=== PATIENT | male | born 1970 | race American Indian/Alaskan Native ===

== ENCOUNTER 2019-01-10 03:32 | Inpatient (IN) | payer MEDICARE ==
[~2019-01-10 03:32] MED LIST: ADRENALIN ONE; AMIDATE IV ONE; HEPARIN 10,000 UNITS/10 ML ONE; QUELICIN ONE
[2019-01-10] MEDS ORDERED: NACL 0.9% 1000 ML 1,000 ML IV ONE (03:40)
[2019-01-10] MEDS ORDERED: HEPARIN 10,000 UNITS/10 ML IV ONE (03:40)
[2019-01-10] MEDS ORDERED: PLAVIX PO ONE (03:40)
--- NOTE | 2019-01-10 03:40 | Emergency Department Report ---
ED Chest Pain HPI - General Stated Complaint: CHEST PAIN Time Seen by Provider: 01/10/19 03:39 - History of Present Illness Initial Comments: Patient is a 48-year-old male presents with chest pain that occurred earlier on today. He had an episode of vomiting when this occurred. Patient was just brought in by EMS history is limited due to acuity of patient's condition. - Related Data Allergies Allergy/AdvReac Type Severity Reaction Status Date / Time No Known Allergies Allergy Verified 01/10/19 04:35 Heart Score - HEART Score History: Highly suspicious EKG: Significant ST-depression Age: 45-65 Risk factors: 1-2 risk factors Troponin: 1-3x normal limit HEART Score: 7 ED Review of Systems ROS: Stated complaint: CHEST PAIN Other details as noted in HPI Comment: Unobtainable due to pts medical conditions Cardiovascular: chest pain ED Physical Exam - General General appearance: lethargic - Head Head exam: Present: atraumatic, normocephalic - Eye Eye exam: Present: normal appearance - ENT ENT exam: Present: mucous membranes moist - Neck Neck exam: Present: normal inspection - Respiratory Respiratory exam: Present: normal lung sounds bilaterally. Absent: respiratory distress - Cardiovascular Cardiovascular Exam: Present: regular rate, normal rhythm. Absent: systolic murmur, diastolic murmur, rubs, gallop - GI/Abdominal GI/Abdominal exam: Present: soft, normal bowel sounds - Rectal Rectal exam: Present: deferred - Extremities Exam Extremities exam: Present: normal inspection - Back Exam Back exam: Present: normal inspection - Neurological Exam Neurological exam: Present: alert, oriented X3 - Psychiatric Psychiatric exam: Present: normal affect, normal mood - Skin Skin exam: Present: warm, dry, intact, normal color. Absent: rash ED Course Vital Signs 01/10/19 03:40 Temperature 97.8 F Pulse Rate 181 H Respiratory 20 Rate Blood Pressure 209/172 Blood Pressure 209/172 [Left] O2 Sat by Pulse 98 Oximetry - Intubation Time Out Performed: No Sedative: Etomidate Mg Given: 10 Paralytic: Succinylcholine Mg Given: 100 Laryngoscope: Zhanna Size: 1 ET Tube Size: 7 Tube Secured Depth (cm): 25 Tube Secured Location: lips Tube Placement Confirmation: visualized tube passing t, equal breath sounds bilat, no breath sounds over epi Patient Tolerated Procedure: no complications CHELSI score - Chelsi Score Age > 65: (0) No Aspirin use within the Past 7 Days: (0) No 3 or more CAD Risk Factors: (0) No 2 or more Angina events in past 24 hrs: (0) No Known CAD with more than 50% Stenosis: (0) No ST Deviation Greater than 0.5mm: (1) Yes ED Medical Decision Making - Lab Data Result diagrams: 01/10/19 03:46 01/10/19 03:46 Lab Results 01/10/19 01/10/19 01/10/19 Range/Units 03:46 03:46 03:46 WBC 5.0 (4.5-11.0) K/mm3 RBC 5.52 H (3.65-5.03) M/mm3 Hgb 12.8 (11.8-15.2) gm/dl Hct 40.0 (35.5-45.6) % MCV 73 L (84-94) fl MCH 23 L (28-32) pg MCHC 32 (32-34) % RDW 14.3 (13.2-15.2) % Plt Count 268 (140-440) K/mm3 Lymph % (Auto) 29.1 (13.4-35.0) % [place] % (Auto) 12.7 H (0.0-7.3) % Eos % (Auto) 1.8 (0.0-4.3) % Baso % (Auto) 0.6 (0.0-1.8) % Lymph # 1.5 (1.2-5.4) K/mm3 [place] # 0.6 (0.0-0.8) K/mm3 Eos # 0.1 (0.0-0.4) K/mm3 Baso # 0.0 (0.0-0.1) K/mm3 Seg Neutrophils % 55.8 (40.0-70.0) % Seg Neutrophils # 2.8 (1.8-7.7) K/mm3 PT 14.3 (12.2-14.9) Sec. INR 1.05 (0.87-1.13) APTT 69.0 H* (24.2-36.6) Sec. Sodium 139 (137-145) mmol/L Potassium 3.5 L (3.6-5.0) mmol/L Chloride 100.5 (98-107) mmol/L Carbon Dioxide 21 L (22-30) mmol/L Anion Gap 21 mmol/L BUN 11 (9-20) mg/dL Creatinine 0.7 L (0.8-1.5) mg/dL Estimated GFR > 60 ml/min BUN/Creatinine Ratio 16 % Glucose 191 H (75-100) mg/dL Calcium 8.8 (8.4-10.2) mg/dL Total Creatine Kinase 215 H (55-170) units/L CK-MB (CK-2) 4.2 H (0.0-4.0) ng/mL CK-MB (CK-2) Rel Index 1.9 (0-4) Troponin T < 0.010 (0.00-0.029) ng/mL Blood Type 01/10/19 Range/Units 03:46 WBC (4.5-11.0) K/mm3 RBC (3.65-5.03) M/mm3 Hgb (11.8-15.2) gm/dl Hct (35.5-45.6) % MCV (84-94) fl MCH (28-32) pg MCHC (32-34) % RDW (13.2-15.2) % Plt Count (140-440) K/mm3 Lymph % (Auto) (13.4-35.0) % [place] % (Auto) (0.0-7.3) % Eos % (Auto) (0.0-4.3) % Baso % (Auto) (0.0-1.8) % Lymph # (1.2-5.4) K/mm3 [place] # (0.0-0.8) K/mm3 Eos # (0.0-0.4) K/mm3 Baso # (0.0-0.1) K/mm3 Seg Neutrophils % (40.0-70.0) % Seg Neutrophils # (1.8-7.7) K/mm3 PT (12.2-14.9) Sec. INR (0.87-1.13) APTT (24.2-36.6) Sec. Sodium (137-145) mmol/L Potassium (3.6-5.0) mmol/L Chloride (98-107) mmol/L Carbon Dioxide (22-30) mmol/L Anion Gap mmol/L BUN (9-20) mg/dL Creatinine (0.8-1.5) mg/dL Estimated GFR ml/min BUN/Creatinine Ratio % Glucose (75-100) mg/dL Calcium (8.4-10.2) mg/dL Total Creatine Kinase (55-170) units/L CK-MB (CK-2) (0.0-4.0) ng/mL CK-MB (CK-2) Rel Index (0-4) Troponin T (0.00-0.029) ng/mL Blood Type A POSITIVE - EKG Data -: EKG Interpreted by Me - EKG Data 01/10/19 05:[address] segment elevation in leads 23 aVF depressions in V2 elevations and leads V 65 V4. Concerning for inferior and anterior RI. - Radiology Data Radiology results: report reviewed Assessment cervical and shows no acute cardiopulmonary disease - Medical Decision Making Chief medical diagnosis: STEMI Differential medical diagnosis: Unstable angina, non-STEMI I will activate quality lab assoc whole call the ingot header Dr. Garcia and I will have patient be admitted immediately to the Data Communications Technician due to his potentially life-threatening condition. Critical Care Time: Yes (30) Critical care time in (mins) excluding proc time.: 30 Critical care attestation.: If time is entered above; I have spent that time in minutes in the direct care of this critically ill patient, excluding procedure time. ED Disposition Clinical Impression: STEMI (ST elevation myocardial infarction) Qualifiers: Involved coronary artery: unspecified coronary artery Qualified Code(s): I21.3 - ST elevation (STEMI) myocardial infarction of unspecified site Disposition: 09 OP ADMIT IP TO THIS HOSP Is pt being admited?: Yes Does the pt Need Aspirin: No Condition: Stable
--- NOTE | 2019-01-10 04:03 | XRay Report ---
PROCEDURE: XR CHEST 1V AP TECHNIQUE: Chest radiograph single view. HISTORY: CODE STEMI COMPARISONS: None . FINDINGS: No mediastinal shift. Cardiac silhouette is not enlarged. No pneumothorax, effusion, or focal pulmona ry opacity identified. No acute skeletal findings. IMPRESSION: No acute pulmonary finding identified. This document is electronically signed by Ramon Cha MD., January 10 2019 03:57:17 AM ET
[2019-01-10 04:05] LABS: Basophils % (Auto) 0.6 % (0.0-1.8); Eosinophils # (Auto) 0.1 K/mm3 (0.0-0.4); Eosinophils % (Auto) 1.8 % (0.0-4.3); Hemoglobin 12.8 gm/dl (11.8-15.2); Lymphocytes # (Auto) 1.5 K/mm3 (1.2-5.4); Lymphocytes % (Auto) 29.1 % (13.4-35.0); Mean Corpuscular HGB Conc 32 % (32-34); Mean Corpuscular Volume 73 fl (84-94); Monocytes # (Auto) 0.6 K/mm3 (0.0-0.8); Monocytes % (Auto) 12.7 % (0.0-7.3); Platelet Count 268 K/mm3 (140-440); Red Blood Count 5.52 M/mm3 (3.65-5.03); Red Cell Distribution Width 14.3 % (13.2-15.2)
[2019-01-10] MEDS ORDERED: HEPARIN/NS 5000 UNIT/500ML(CATH LAB) 1,000 ML IR ONE (04:11)
[2019-01-10] MEDS ORDERED: VERSED ONE ×2 (04:11→04:54)
[2019-01-10] MEDS ORDERED: SUBLIMAZE ONE (04:11)
[2019-01-10] MEDS ORDERED: XYLOCAINE 2% INFILTRATI ONE (04:12)
[2019-01-10] MEDS ORDERED: CALAN ONE (04:12)
[2019-01-10] MEDS ORDERED: NITROGLYCERIN SYRINGE 3 ML ONE (04:12)
[2019-01-10 04:17] LABS: INR 1.05 (0.87-1.13)
[2019-01-10] MEDS ORDERED: NACL 0.9% 1000 ML 1,000 ML ONE ×2 (04:18→06:04)
[2019-01-10] MEDS ORDERED: XYLOCAINE CARDIAC IV ONE (04:23)
[2019-01-10] MEDS ORDERED: ADRENALIN ONE ×2 (04:23→05:07)
[2019-01-10] MEDS ORDERED: NEO SYNEPHRINE/NS Syringe(OR USE) IV ONE (04:24)
[2019-01-10] MEDS ORDERED: ATROPINE 0.1% (CARDIAC) ONE (04:24)
[2019-01-10] MEDS: HEPARIN 10,000 UNITS/10 ML ONE ×2 (04:30→04:37)
[2019-01-10] MEDS ORDERED: INTROPIN DRIP 800 MG/D5W 250 ML 800 MG/250 ML BAG IV ONE (04:31)
[2019-01-10 04:34] LABS: BUN/Creatinine Ratio 16; Blood Urea Nitrogen 11 mg/dL (9-20); Calcium 8.8 mg/dL (8.4-10.2); Creatine Kinase MB 4.2 ng/mL (0.0-4.0); Hemolysis Index 5
[2019-01-10] MEDS ORDERED: AGGRASTAT DRIP (12.5 MG/250 ML) 12,500 MCG/250 ML BAG IV ONE (04:37)
[2019-01-10] MEDS ORDERED: HEPARIN/NS 5000 UNIT/500ML(CATH LAB) 500 ML IR ONE (04:57)
[2019-01-10] MEDS ORDERED: ANCEF/STERILE WATER 2 GM/20 ML 2 GM/20 ML SYRINGE IV ONE (05:03)
[2019-01-10] MEDS ORDERED: NEO SYNEPHRINE ONE (05:07)
[2019-01-10] MEDS ORDERED: LEVOPHED IV ONE (05:07)
[2019-01-10] MEDS ORDERED: NACL 0.9% 250ML 250 ML ONE (05:07)
[2019-01-10] MEDS ORDERED: NACL 0.9% 100 ML ONE (05:07)
[2019-01-10] MEDS ORDERED: HEPARIN/ 0.45% NACL-25,000 UNIT/500 ML 25,000 UNIT/500 ML BAG ONE (05:10)
[2019-01-10] MEDS ORDERED: ALUM-MAG HYDROX-SIMETH 200-200-20MG/5ML ONE (05:10)
[2019-01-10] MEDS ORDERED: BRILINTA ONE (05:10)
[2019-01-10] MEDS ORDERED: BREVIBLOC IV ONE (05:12)
[2019-01-10] MEDS ORDERED: AMIDATE IV ONE (05:12)
[2019-01-10] MEDS ORDERED: ZEMURON IV ONE (05:12)
[2019-01-10] MEDS ORDERED: VERSED IV ONE (05:13)
--- NOTE | 2019-01-10 05:46 | History and Physical Report ---
History of Present Illness Date of examination: 01/10/19 Date of admission: 01/10/19 Chief complaint: Chest pain History of present illness: Patient is a 48-year-old with history of diabetes no significant family history who presented to the ER via EMS after he woke up at severe substernal chest pain. Apparently patient started having chest pain started throwing up and immediately called 911. Patient was brought into the ER noted to have acute inferior ST elevation HI. In the interim patient had a code and and had to be resuscitated and intubated. Patient was taken emergently to the agriculture laborer noted 100% occlusion of the circumflex. Patient is status post successful percutaneous intervention of the proximal circumflex. Currently intubated and on balloon pump. Still has residual ST elevation inferior leads despite CHELSI-3 flow.. Past History Past Medical History: diabetes Medications and Allergies Allergies Allergy/AdvReac Type Severity Reaction Status Date / Time No Known Allergies Allergy Verified 01/10/19 04:35 Active Meds: Active Medications Aspirin (Baby Aspirin) 81 mg PO QDAY ANANT Sodium Chloride (Nacl 0.9% 1000 Ml) 1,000 mls @ 42 mls/hr IV ONCE ONE Stop: 01/11/19 03:28 Tirofiban/Sodium Chloride (Aggrastat Drip (12.5 Mg/250 Ml)) 12,500 mcg in 250 mls @ 0 mls/hr IV DIRECT ANANT; Protocol Sodium Chloride (Nacl 0.9% 1000 Ml) 1,000 mls @ 150 mls/hr IV DIRECT ANANT Ticagrelor (Brilinta) 90 mg PO BID ANANT Review of Systems ROS unobtainable: due to endotracheal tube Physical Examination Vital Signs Temp Pulse Resp BP Pulse Ox 97.8 F 181 H 20 209/172 98 01/10/19 03:40 01/10/19 03:40 01/10/19 03:40 01/10/19 03:40 01/10/19 03:40 General appearance: well-nourished Neck: Positive: neck supple Cardiac: Positive: Tachycardia Lungs: Positive: Normal Exam Neuro: Positive: Other (patient intubated) Abdomen: Positive: Unremarkable Male genitourinary: Positive: deferred Skin: Positive: Clear Extremities: Present: normal Results 01/10/19 03:46 01/10/19 03:46 Cardiac Enzymes 01/10/19 Range/Units 03:46 CK-MB (CK-2) 4.2 H (0.0-4.0) ng/mL Coagulation 01/10/19 Range/Units 03:46 PT 14.3 (12.2-14.9) Sec. INR 1.05 (0.87-1.13) APTT 69.0 H* (24.2-36.6) Sec. CBC 01/10/19 Range/Units 03:46 WBC 5.0 (4.5-11.0) K/mm3 RBC 5.52 H (3.65-5.03) M/mm3 Hgb 12.8 (11.8-15.2) gm/dl Hct 40.0 (35.5-45.6) % Plt Count 268 (140-440) K/mm3 Lymph # 1.5 (1.2-5.4) K/mm3 [place] # 0.6 (0.0-0.8) K/mm3 Eos # 0.1 (0.0-0.4) K/mm3 Baso # 0.0 (0.0-0.1) K/mm3 Comprehensive Metabolic Panel 01/10/19 Range/Units 03:46 Sodium 139 (137-145) mmol/L Potassium 3.5 L (3.6-5.0) mmol/L Chloride 100.5 (98-107) mmol/L Carbon Dioxide 21 L (22-30) mmol/L BUN 11 (9-20) mg/dL Creatinine 0.7 L (0.8-1.5) mg/dL Glucose 191 H (75-100) mg/dL Calcium 8.8 (8.4-10.2) mg/dL EKG interpretations - Telemetry EKG Rhythm: Sinus Rhythm (acute inferior ST elevation HI) Assessment and Plan Assessment Acute inferior ST elevation HI Status post cardiac arrest in the ER Cardiogenic shock Status post PCI of the circumflex Diabetes mellitus Plan Balloon pump support Aspirin Heparin Brilinta Aggrastat for at least 24 hours No beta blockers for now Atorvastatin PPIs Diabetic management per medical team Condition critical
--- NOTE | 2019-01-10 05:51 | Event Note ---
Date: 01/10/19 Called to laboratory mechanical technician urgently for STEMI patient who had been intubated in ED for C but was fighting the ventilator despite RN administered versed and fentanyl IV for sedation. On arrival, procedure was completed but patient still displaying vent dyssynchrony. BP 100s/50s, tachycardic, SpO2 100% on vent settings VCV Vt 500mL x 18bpm, FiO2 100%, Peep 6, does not open eyes to noxious stimuli. Administered rocuronium 50mg IV and observed patient for several minutes thereafter. VS remained stable. bean sprout laborer RN advised that paralytic had been given, vent settings were unchanged, and that he should be remain intubated and appropriately sedated on arrival to ICU until he displays full recovery of muscle strength. Beverley Silver MD Anesthesiology
[2019-01-10] MEDS ORDERED: AGGRASTAT DRIP (12.5 MG/250 ML) 12,500 MCG/250 ML BAG IV SCH (06:00)
[2019-01-10] MEDS ORDERED: APRESOLINE IV PRN (06:46)
[2019-01-10] MEDS ORDERED: D50W (25GM) Syringe IV PRN ×2 (06:48→08:30)
--- NOTE | 2019-01-10 08:12 | Cardiac Catherization Report ---
CORONARY ANGIOGRAM AND PERCUTANEOUS INTERVENTION REPORT PROCEDURES PERFORMED: 1. Selective left and right coronary angiogram. 2. Left ventriculogram. 3. Percutaneous intervention of totally occluded circumflex. 4. Intraaortic balloon pump placement. ASSEMBLER FITTER: Franklin Garcia MD INDICATION: Acute inferior ST elevation PR and cardiogenic shock. PROCEDURE DETAILS: The patient was brought into the laborer cheesemaking on a ventilator. The patient was cleaned and draped in the usual sterile fashion. Using a micropuncture needle and after infiltration of local anesthesia, a 6-Wallisian sheath was placed in the right femoral artery. Sheath was cleaned and flushed up. A diagnostic coronary angiogram revealed 100% occlusion of the circ. We decided to proceed with the intervention. Intravenous heparin was used to maintain therapeutic ACT. An XB 3.5 guide was used to engage the left main coronary artery. A BMW wire was used to cross the 100% occlusion of the circumflex. After initial predilatation, we were able to establish CHELSI 2 flow. Mechanical thrombectomy was done and aspirated as much as thrombus as possible, following which a 3.0 x 15 Xience drug-eluting stent was deployed in the proximal circumflex. This was then postdilated with a 3.5 mm balloon to high atmospheres. There was good CHELSI 3 flow in a large bifurcating OM, but the mid and distal circumflex were small and had CHELSI 2 flow. We then exchanged the XB 3.5 guide catheter to a JR4 diagnostic catheter. Right coronary angiogram was done. Over the wire, exchange was done and the pigtail catheter was used to cross the LV and left ventriculogram was done. Then, the pigtail catheter was removed and a balloon pump was placed under the standard guidelines. Under fluoroscopic guidance, the placement of balloon pump was confirmed. Balloon pump was sutured in place and specific connections made. NG tube was placed. In the interim, the patient was also started on Aggrastat prior to PCI. An NG tube was placed and 180 mg of Brilinta was given. The patient is currently hemodynamically stable on 10 mcg of dopamine and balloon pump. FINDINGS: HEMODYNAMICS: 1. No significant gradient across the aortic valve. 2. LVEDP was 18. 3. Left ventriculogram done in 30 degrees MATTHEWS projection was suboptimal because of tachycardia. ANGIOGRAM DETAILS: 1. Left main is angiographically normal. 2. LAD has mild luminal irregularities. 3. Circumflex 100% occluded proximally. 4. RCA is a codominant small caliber vessel, 40% proximal stenosis noted. IMPRESSION: 1. Status post successful percutaneous intervention of the 100% occlusion of the proximal circumflex with the deployment of a 3.0 x 15 Xience drug-eluting stent, which was then post-dilated with a 3.5 mm balloon to high atmospheres. 2. Mild nonobstructive disease of the right coronary artery. 3. Cardiogenic shock. 4. Successful placement of an intraaortic balloon pump. 5. Incomplete resolution of inferior ST segment probably secondary to microvascular thrombi. PLAN: 1. Aspirin for life. 2. Brilinta via NG tube for now. 3. Aggrastat at least for 24 hours. 4. Intravenous heparin while the patient is on balloon pump. 5. Aggressive adjuvant pharmacotherapy post-PCI. 6. Routine balloon pump management. JOB# [id number] MIGUEL ANGEL/RODRIGUE
[2019-01-10] MEDS ORDERED: HEPARIN 1,000 UNIT in NACL 0.9% 500 ML 500 ML IV SCH ×2 (09:15→11:30)
[2019-01-10 09:17] LABS: Hematocrit 42.1 % (35.5-45.6); Hemoglobin 13.2 gm/dl (11.8-15.2)
[2019-01-10 09:29] LABS: INR 1.18 (0.87-1.13)
--- NOTE | 2019-01-10 09:41 | Consultation ---
History of Present Illness Consult date: 01/10/19 Requesting physician: ELAINE THEODORE Reason for consult: other (Cardiac arrest secondary to STEMI, and acute respiratory failure) History of present illness: 48 y/o male with acute respiratory failure secondary to cardiac arrest from STEMI. Patient taken to the airport maintenance laborer and transitioned to the ICU on a balloon pump. Patient awake and alert. Follows commands. Currently on 1:1 balloon pump with aggrastat and heparin infusions. BP stable. No distress noted. Past History Past Medical History: diabetes Past Surgical History: Other (unable to obtain) Social history: other (unable to obtain) Family history: other (unable to obtain) Medications and Allergies Allergies Allergy/AdvReac Type Severity Reaction Status Date / Time No Known Allergies Allergy Verified 01/10/19 04:35 Active Meds: Active Medications Aspirin (Baby Aspirin) 81 mg PO QDAY ANANT Atorvastatin Calcium (Lipitor) 80 mg PO QHS ANANT Dextrose (D50w (25gm) Syringe) 50 ml IV PRN PRN PRN Reason: Hypoglycemia Dextrose (D50w (25gm) Syringe) 50 ml IV PRN PRN PRN Reason: Hypoglycemia Fentanyl (Sublimaze) 50 mcg IV Q2HR PRN PRN Reason: Chest Pain Hydralazine HCl (Apresoline) 5 mg IV Q6H PRN PRN Reason: Hypertension Sodium Chloride (Nacl 0.9% 1000 Ml) 1,000 mls @ 42 mls/hr IV ONCE ONE Stop: 01/11/19 03:28 Tirofiban/Sodium Chloride (Aggrastat Drip (12.5 Mg/250 Ml)) 12,500 mcg in 250 mls @ 19.5 mls/hr IV DIRECT ANANT; Protocol Stop: 01/18/19 05:59 Sodium Chloride (Nacl 0.9% 1000 Ml) 1,000 mls @ 150 mls/hr IV DIRECT ANANT Dopamine HCl/Dextrose (Intropin Drip 800 Mg/D5w 250 Ml) 800 mg in 250 mls @ 4.082 mls/hr IV TITR ANANT; Protocol Heparin Sodium/Sodium Chloride (Heparin/ 0.45% Nacl-25,000 Unit/500 Ml) 25,000 unit in 500 mls @ 32.659 mls/hr IV TITR ANANT; Protocol Insulin Human Lispro (Humalog) 0 unit SUB-Q Q6HR ANANT; Protocol Lansoprazole (Prevacid Solutab) 30 mg FEEDTUBE QDAY ANANT Ticagrelor (Brilinta) 90 mg PO BID [facility] Review of Systems ROS unobtainable: due to endotracheal tube Physical Examination Vital signs: Vital Signs Temp Pulse Resp BP Pulse Ox 97.8 F 181 H 20 209/172 98 01/10/19 03:40 01/10/19 03:40 01/10/19 03:40 01/10/19 03:40 01/10/19 03:40 General appearance: no acute distress, alert Eyes: non-icteric ENT: other (orally intubated and critically ill on the vent) Effort: normal Ascultation: Bilateral: clear Percussion: Bilateral: not dull Gastrointestinal: soft normal mental status Results - Laboratory Findings CBC and BMP: 01/10/19 07:50 01/10/19 03:46 ABG POC ABG pH 7.265 (7.35-7.45) L 01/10/19 08:19 POC ABG pCO2 44.5 (35-45) 01/10/19 08:19 POC ABG pO2 287 (80-105) H 01/10/19 08:19 POC ABG HCO3 20.2 01/10/19 08:19 POC ABG Total CO2 22 01/10/19 08:19 POC ABG O2 Sat 100 01/10/19 08:19 PT/INR, D-dimer PT 15.8 Sec. (12.2-14.9) H 01/10/19 07:50 INR 1.18 (0.87-1.13) H 01/10/19 07:50 Abnormal lab findings: Abnormal Labs 01/10/19 01/10/19 01/10/19 03:46 03:46 03:46 RBC 5.52 H MCV 73 L MCH 23 L [place] % (Auto) 12.7 H PT INR APTT 69.0 H* POC ABG pH POC ABG pO2 Potassium 3.5 L Carbon Dioxide 21 L Creatinine 0.7 L Glucose 191 H Total Creatine Kinase 215 H CK-MB (CK-2) 4.2 H 01/10/19 01/10/19 07:50 08:19 RBC MCV MCH [place] % (Auto) PT 15.8 H INR 1.18 H APTT POC ABG pH 7.265 L POC ABG pO2 287 H Potassium Carbon Dioxide Creatinine Glucose Total Creatine Kinase CK-MB (CK-2) - Diagnostic Findings Chest x-ray: image reviewed (Clear lung lambert, cardiomegaly) Assessment and Plan 48 y/o male with cardiac arrest secondary to STEMI and acute respiratory failure status post PCI 1. Continue vent support, wean FiO2 as tolerated 2. PRN fentanyl for Pain, currently no continuous sedation needed 3. Balloon pump and anticoagulation per cards CCT 31 minutes.
[2019-01-10] MEDS: INTROPIN DRIP 800 MG/D5W 250 ML 800 MG/250 ML BAG IV SCH ×2 (10:00→15:56)
[2019-01-10] MEDS ORDERED: SUBLIMAZE IV PRN ×2 (10:00→10:18)
[2019-01-10 10:21] LABS: Chol/HDL Ratio 2.55 %
[2019-01-10 10:24] LABS: Partial Thromboplastin Time 129.2 Sec. (24.2-36.6)
[2019-01-10] MEDS: NACL 0.9% 1000 ML 1,000 ML IV SCH ×2 (10:45→16:01)
[2019-01-10] MEDS: fentaNYL DRIP Premix 2,000 MCG/100 ML BAG IV SCH (11:00)
[2019-01-10 11:09] LABS: Creatine Kinase MB 398.1 ng/mL (0.0-4.0)
[2019-01-10] MEDS: HEPARIN/ 0.45% NACL-25,000 UNIT/500 ML 25,000 UNIT/500 ML BAG IV SCH (11:30)
[2019-01-10] MEDS ORDERED: HEPARIN 1,000 UNIT in NACL 0.9% 500 ML 500 ML IV ONE (11:30)
[2019-01-10] MEDS: HumaLOG SUB-Q SCH ×2 (12:00→18:14)
[2019-01-10 12:54] LABS: Creatine Kinase MB 339.3 ng/mL (0.0-4.0)
--- NOTE | 2019-01-10 13:08 | Progress Note ---
Assessment and Plan Acute inferior ST elevation SD s/p PCI of circumflex Status post cardiac arrest in the ER Cardiogenic shock s/p IABG Diabetes mellitus Bloody drainage from NG tube. Plan Aggrastat stopped due to onging bloody drainage from NG tube Continue IABP Continue DAPT and IV heparin Wean dopamine Check serial H and H Subjective Date of service: 01/10/19 Interval history: Pt remains intubated, mechanically ventilated. He has been having bloody output from NG tube. Objective Vital Signs Temp Pulse Resp BP BP Pulse Ox 01/10/19 12:51 97 H 18 87/55 100 01/10/19 12:41 97 H 18 87/63 100 01/10/19 12:31 97 H 10 L 87/63 100 01/10/19 12:21 96 H 18 116/67 100 01/10/19 12:11 99 H 12 95/59 87 01/10/19 12:00 100 H 0 L 95/59 100 01/10/19 11:51 99 H 0 L 90/58 96 01/10/19 11:40 98 H 18 94/55 95 01/10/19 11:30 93 H 18 78/49 100 01/10/19 11:21 97 H 18 82/52 100 01/10/19 11:11 97 H 18 94/53 100 01/10/19 11:00 97 H 18 94/53 100 01/10/19 10:51 97 H 18 90/61 100 01/10/19 10:41 95 H 15 86/51 100 01/10/19 10:30 95 H 17 86/51 100 01/10/19 10:21 100 H 12 90/57 98 01/10/19 10:11 104 H 7 L 90/61 98 01/10/19 10:01 96 H 12 90/61 97 01/10/19 09:51 97 H 18 100/59 98 01/10/19 09:41 99 H 14 108/54 99 01/10/19 09:31 101 H 18 108/54 99 01/10/19 09:21 102 H 16 101/59 99 01/10/19 09:11 102 H 15 104/60 99 01/10/19 09:00 107 H 19 104/60 98 01/10/19 08:51 102 H 19 110/48 100 01/10/19 08:41 100 H 16 72/51 99 01/10/19 08:31 103 H 12 72/51 98 01/10/19 08:27 103 H 99 01/10/19 08:21 101 H 19 116/59 100 01/10/19 08:11 112 H 19 107/67 100 01/10/19 08:00 97 F L 119 H 14 107/67 100 01/10/19 07:51 117 H 17 109/64 100 01/10/19 07:41 103 H 14 88/49 100 01/10/19 07:30 101 H 17 88/49 100 01/10/19 07:25 113 H 15 100 01/10/19 07:12 109 H 20 100 01/10/19 07:00 97 F L 01/10/19 04:11 133 H 40 H 209/172 57 L 01/10/19 04:10 126 H 100 01/10/19 04:01 96 H 100 01/10/19 03:51 78 12 100 01/10/19 03:40 97.8 F 78 12 110/73 209/172 100 01/10/19 03:32 84 17 99 - Physical Examination Neck: Positive: neck supple Cardiac: Positive: Reg Rate and Rhythm Lungs: Positive: Rhonchi Neuro: Positive: Other (patient intubated) Abdomen: Positive: Unremarkable Skin: Positive: Clear Extremities: Present: normal - Labs and Meds Cardiac Enzymes 01/10/19 01/10/19 01/10/19 Range/Units 03:46 07:50 10:46 CK-MB (CK-2) 4.2 H 398.1 H 339.3 H (0.0-4.0) ng/mL Coagulation 01/10/19 01/10/19 Range/Units 03:46 07:50 PT 14.3 15.8 H (12.2-14.9) Sec. INR 1.05 1.18 H (0.87-1.13) APTT 69.0 H* 129.2 H* (24.2-36.6) Sec. Lipids 01/10/19 Range/Units 07:50 Triglycerides 89 (2-149) mg/dL Cholesterol 115 (50-199) mg/dL HDL Cholesterol 45 (40-59) mg/dL Cholesterol/HDL Ratio 2.55 % CBC 01/10/19 01/10/19 Range/Units 03:46 07:50 WBC 5.0 (4.5-11.0) K/mm3 RBC 5.52 H (3.65-5.03) M/mm3 Hgb 12.8 13.2 (11.8-15.2) gm/dl Hct 40.0 42.1 (35.5-45.6) % Plt Count 268 282 (140-440) K/mm3 Lymph # 1.5 (1.2-5.4) K/mm3 [place] # 0.6 (0.0-0.8) K/mm3 Eos # 0.1 (0.0-0.4) K/mm3 Baso # 0.0 (0.0-0.1) K/mm3 Comprehensive Metabolic Panel 01/10/19 Range/Units 03:46 Sodium 139 (137-145) mmol/L Potassium 3.5 L (3.6-5.0) mmol/L Chloride 100.5 (98-107) mmol/L Carbon Dioxide 21 L (22-30) mmol/L BUN 11 (9-20) mg/dL Creatinine 0.7 L (0.8-1.5) mg/dL Glucose 191 H (75-100) mg/dL Calcium 8.8 (8.4-10.2) mg/dL
--- NOTE | 2019-01-10 15:01 | Progress Note ---
Assessment and Plan Assessment and plan: The high probability of a clinically significant, sudden or life threatening deterioration of the [] system(s) required my full and direct attention, intervention and personal management. The aggregate critical care time was [] minutes. This time is in addition to time spent performing reported procedures but includes the following: [x] Data Review and interpretation [x]x Patient assessment and monitoring of vital signs [x] Documentation x[] Medication orders and management Total Time Spent with Patient (Minutes): 33 - Patient Problems (1) STEMI (ST elevation myocardial infarction) Current Visit: Yes Status: Acute Qualifiers: Involved coronary artery: unspecified coronary artery Qualified Code(s): I21.3 - ST elevation (STEMI) myocardial infarction of unspecified site Plan to address problem: Patient presents with acute myocardial infarction status post PCI had 100% stenosis of circumflex. Hospital course complicated by cardiac arrest respiratory failure after cold blue. Patient now intubated. Hospital course also complicated by blood loss anemia H&H pending. Has improved since disco ntinuing Aggrastat. We'll continue aspirin. Wean dopamine. cardiology following as well. (2) Acute respiratory failure Current Visit: Yes Status: Acute Plan to address problem: Patient remains intubated onset no drift. Wean per pulmonary Dr. Cage. (3) Diabetes Current Visit: Yes Status: Acute Plan to address problem: Patient has diabetes appears to have been treated such as type II. May have been unknown. Will cover with sliding scale insulin today and advance as tolerated. Accu-Cheks every 6 hourly. Cover with moderate dose sliding scale. History Interval history: Patient intubated sedated intubated with bloody discharge from the nares and oral mucosa. This is much improved since earlier. Patient was on Aggrastat and aspirin. She is acute [place] with ST elevation status post PCI. Hospital course complicated by acute respiratory failure and subsequently intubated. Hospitalist Physical - Constitutional Vitals: Temp Pulse Resp BP Pulse Ox 98.4 F 99 H 18 87/57 100 01/10/19 12:00 01/10/19 13:41 01/10/19 13:41 01/10/19 13:41 01/10/19 13:41 General appearance: Present: mild distress, well-nourished - EENT ENT: dentition normal, no oropharyngeal erythema, no poor dentition, no thrush, no ulcerations - Neck Neck: Present: supple - Respiratory Respiratory: bilateral: diminished, rhonchi - Cardiovascular Rhythm: regular - Extremities Extremities: no ischemia, pulses intact, pulses symmetrical, No edema, normal temperature, normal color Peripheral Pulses: within normal limits - Abdominal General gastrointestinal: soft, non-tender, non-distended, no distended, no normal bowel sounds, no hypoactive bowel sounds - Integumentary Integumentary: Present: warm, dry - Psychiatric Psychiatric: other (intubated sedated.) Results - Labs CBC & Chem 7: 01/10/19 07:50 01/10/19 03:46 Labs: Laboratory Last Values WBC 5.0 K/mm3 (4.5-11.0) 01/10/19 03:46 RBC 5.52 M/mm3 (3.65-5.03) H 01/10/19 03:46 Hgb 13.2 gm/dl (11.8-15.2) 01/10/19 07:50 Hct 42.1 % (35.5-45.6) 01/10/19 07:50 MCV 73 fl (84-94) L 01/10/19 03:46 MCH 23 pg (28-32) L 01/10/19 03:46 MCHC 32 % (32-34) 01/10/19 03:46 RDW 14.3 % (13.2-15.2) 01/10/19 03:46 Plt Count 282 K/mm3 (140-440) 01/10/19 07:50 Lymph % (Auto) 29.1 % (13.4-35.0) 01/10/19 03:46 [place] % (Auto) 12.7 % (0.0-7.3) H 01/10/19 03:46 Eos % (Auto) 1.8 % (0.0-4.3) 01/10/19 03:46 Baso % (Auto) 0.6 % (0.0-1.8) 01/10/19 03:46 Lymph # 1.5 K/mm3 (1.2-5.4) 01/10/19 03:46 [place] # 0.6 K/mm3 (0.0-0.8) 01/10/19 03:46 Eos # 0.1 K/mm3 (0.0-0.4) 01/10/19 03:46 Baso # 0.0 K/mm3 (0.0-0.1) 01/10/19 03:46 Seg Neutrophils % 55.8 % (40.0-70.0) 01/10/19 03:46 Seg Neutrophils # 2.8 K/mm3 (1.8-7.7) 01/10/19 03:46 PT 15.8 Sec. (12.2-14.9) H 01/10/19 07:50 INR 1.18 (0.87-1.13) H 01/10/19 07:50 APTT 129.2 Sec. (24.2-36.6) H* 01/10/19 07:50 Heparin Anti-Xa Level 0.56 U.I./ml (0.3-0.7) 01/10/19 10:46 POC ABG pH 7.265 (7.35-7.45) L 01/10/19 08:19 POC ABG pCO2 44.5 (35-45) 01/10/19 08:19 POC ABG pO2 287 (80-105) H 01/10/19 08:19 POC ABG HCO3 20.2 01/10/19 08:19 POC ABG Total CO2 22 01/10/19 08:19 POC ABG O2 Sat 100 01/10/19 08:19 POC ABG Base Excess -7 01/10/19 08:19 FiO2 100 % 01/10/19 08:19 Sodium 139 mmol/L (137-145) 01/10/19 03:46 Potassium 3.5 mmol/L (3.6-5.0) L 01/10/19 03:46 Chloride 100.5 mmol/L (98-107) 01/10/19 03:46 Carbon Dioxide 21 mmol/L (22-30) L 01/10/19 03:46 Anion Gap 21 mmol/L 01/10/19 03:46 BUN 11 mg/dL (9-20) 01/10/19 03:46 Creatinine 0.7 mg/dL (0.8-1.5) L 01/10/19 03:46 Estimated GFR > 60 ml/min 01/10/19 03:46 BUN/Creatinine Ratio 16 % 01/10/19 03:46 Glucose 191 mg/dL (75-100) H 01/10/19 03:46 POC Glucose 189 (70-105) H 01/10/19 04:15 Calcium 8.8 mg/dL (8.4-10.2) 01/10/19 03:46 Total Creatine Kinase 7146 units/L (55-170) H 01/10/19 10:46 CK-MB (CK-2) 339.3 ng/mL (0.0-4.0) H 01/10/19 10:46 CK-MB (CK-2) Rel Index 4.7 (0-4) H 01/10/19 10:46 Troponin T 10.800 ng/mL (0.00-0.029) H* 01/10/19 10:46 Triglycerides 89 mg/dL (2-149) 01/10/19 07:50 Cholesterol 115 mg/dL (50-199) 01/10/19 07:50 LDL Cholesterol Direct 70 mg/dL (50-130) 01/10/19 07:50 HDL Cholesterol 45 mg/dL (40-59) 01/10/19 07:50 Cholesterol/HDL Ratio 2.55 % 01/10/19 07:50 Blood Type A POSITIVE 01/10/19 03:46 Antibody Screen Negative 01/10/19 03:46
[2019-01-10 16:09] LABS: Hematocrit 36.7 % (35.5-45.6); Hemoglobin 11.4 gm/dl (11.8-15.2)
[2019-01-10] MEDS: BABY ASPIRIN PO SCH (17:12)
[2019-01-10] MEDS: PREVACID SOLUTAB FEEDTUBE SCH (17:12)
[2019-01-10] MEDS: BRILINTA PO SCH (21:43)
[2019-01-10 22:19] LABS: Hematocrit 35.7 % (35.5-45.6); Hemoglobin 11.3 gm/dl (11.8-15.2); Mean Corpuscular HGB Conc 32 % (32-34); Mean Corpuscular Volume 72 fl (84-94); Platelet Count 231 K/mm3 (140-440); Red Blood Count 4.93 M/mm3 (3.65-5.03)
[2019-01-11] MEDS: NACL 0.9% 1000 ML 1,000 ML IV SCH ×4 (00:09→19:00)
[2019-01-11] MEDS: HumaLOG SUB-Q SCH ×4 (00:13→17:56)
[2019-01-11] MEDS: fentaNYL DRIP Premix 2,000 MCG/100 ML BAG IV SCH (01:36)
--- NOTE | 2019-01-11 02:57 | XRay Report ---
PROCEDURE: XR CHEST 1V AP TECHNIQUE: Chest radiograph single view. HISTORY: post pci COMPARISONS: 01/10/2019 . FINDINGS: Heart: Normal. Mediastinum/Vessels: Normal. Lungs/Pleural space: Normal. Bony thorax: No acute osseous abnormality. Life support devices: The ET tube and NG tube appear in good position.. IMPRESSION: No acute infarct or congestion. Satisfactory positioning of ET tube and NG tube.. This document is electronically signed by Jordan Lopez MD., January 11 2019 02:55:08 AM ET
[2019-01-11 04:54] LABS: Basophils % (Auto) 0.2 % (0.0-1.8); Hematocrit 32.5 % (35.5-45.6); Hemoglobin 10.2 gm/dl (11.8-15.2); Lymphocytes # (Auto) 0.7 K/mm3 (1.2-5.4); Lymphocytes % (Auto) 8.3 % (13.4-35.0); Mean Corpuscular HGB Conc 31 % (32-34); Mean Corpuscular Volume 73 fl (84-94); Monocytes # (Auto) 0.9 K/mm3 (0.0-0.8); Monocytes % (Auto) 11.4 % (0.0-7.3); Platelet Count 207 K/mm3 (140-440); Red Blood Count 4.45 M/mm3 (3.65-5.03); Red Cell Distribution Width 14.2 % (13.2-15.2)
[2019-01-11 05:11] LABS: Creatine Kinase MB 136.2 ng/mL (0.0-4.0)
[2019-01-11 05:12] LABS: BUN/Creatinine Ratio 26; Blood Urea Nitrogen 21 mg/dL (9-20); Calcium 7.2 mg/dL (8.4-10.2); Hemolysis Index 50
[2019-01-11] MEDS: HEPARIN/ 0.45% NACL-25,000 UNIT/500 ML 25,000 UNIT/500 ML BAG IV SCH (06:21)
[2019-01-11] MEDS: BRILINTA PO SCH ×2 (09:12→22:11)
[2019-01-11] MEDS: BABY ASPIRIN PO SCH (09:12)
[2019-01-11] MEDS: PREVACID SOLUTAB FEEDTUBE SCH (09:12)
--- NOTE | 2019-01-11 11:21 | Progress Note ---
Assessment and Plan Acute inferior ST elevation [place] s/p PCI of circumflex Status post cardiac arrest in the ER Cardiogenic shock s/p IABG Diabetes mellitus Bloody drainage from NG tube: Now resolved. Plan Continue IABP - will plan on removing IABP tomorrow. Continue DAPT and IV heparin Check serial H and H Subjective Date of service: 01/11/19 Interval history: Pt is doing much better today. He has not had any further bleeding. Dopamine weaned. Objective Vital Signs Temp Pulse Resp BP Pulse Ox 01/11/19 08:10 100 01/11/19 08:00 98.5 F 95 H 116/80 100 01/11/19 07:00 18 100 01/11/19 06:00 18 100 01/11/19 05:00 18 100 01/11/19 04:27 102 H 100 01/11/19 04:00 18 100 01/11/19 03:00 18 100 01/11/19 02:00 101 H 18 100 01/11/19 01:00 101 H 18 100 01/11/19 00:00 99.0 F 101 H 18 96/72 100 01/10/19 23:00 18 100 01/10/19 22:00 101 H 18 100 01/10/19 21:53 98 H 100 01/10/19 21:00 18 100 01/10/19 20:00 99.2 F 18 100 01/10/19 18:41 101 H 18 90/54 100 01/10/19 18:30 102 H 18 90/54 100 01/10/19 18:21 102 H 17 92/60 100 01/10/19 18:11 100 H 18 108/78 100 01/10/19 18:10 100 01/10/19 18:00 99 H 18 108/78 100 01/10/19 17:51 101 H 17 108/56 99 01/10/19 17:41 102 H 18 98/63 99 01/10/19 17:30 103 H 18 98/63 99 01/10/19 17:21 103 H 18 99/56 98 01/10/19 17:11 102 H 18 123/69 100 01/10/19 17:01 113 H 18 123/69 100 01/10/19 16:51 115 H 19 108/66 100 01/10/19 16:41 111 H 18 99/61 100 01/10/19 16:34 104 H 99/61 100 01/10/19 16:31 106 H 14 99/61 100 01/10/19 16:21 101 H 18 81/43 100 01/10/19 16:11 100 H 18 105/72 100 01/10/19 16:00 99 F 120 H 18 105/72 100 01/10/19 15:51 115 H 18 107/64 100 01/10/19 15:41 116 H 18 99/57 99 01/10/19 15:30 105 H 18 99/57 99 01/10/19 15:21 102 H 18 91/60 100 01/10/19 15:11 101 H 18 93/62 100 01/10/19 15:00 98 F 101 H 18 93/62 100 01/10/19 14:51 99 H 18 93/63 100 01/10/19 14:41 99 H 18 90/64 100 01/10/19 14:30 98 H 18 90/64 100 01/10/19 14:21 98 H 18 91/60 100 01/10/19 14:11 99 H 18 90/56 100 01/10/19 14:00 98 F 99 H 18 90/56 100 01/10/19 13:51 98 H 18 91/52 99 01/10/19 13:41 99 H 18 87/57 100 01/10/19 13:30 97 H 18 87/57 99 01/10/19 13:21 97 H 18 88/56 100 01/10/19 13:11 97 H 18 88/56 100 01/10/19 13:00 97.9 F 98 H 18 88/56 100 01/10/19 12:51 97 H 18 87/55 100 01/10/19 12:41 97 H 18 87/63 100 01/10/19 12:31 97 H 10 L 87/63 100 01/10/19 12:21 96 H 18 116/67 100 01/10/19 12:15 100 01/10/19 12:11 99 H 12 95/59 87 01/10/19 12:00 98.4 F 100 H 0 L 95/59 100 01/10/19 11:51 99 H 0 L 90/58 96 01/10/19 11:40 98 H 18 94/55 95 01/10/19 11:30 93 H 18 78/49 100 01/10/19 11:21 97 H 18 82/52 100 - Physical Examination General: Other (Intubated, awake.) HEENT: Positive: EOMI Neck: Positive: neck supple Cardiac: Positive: Reg Rate and Rhythm Lungs: Positive: clear to auscultation, Rhonchi Abdomen: Positive: Unremarkable, Soft, Active Bowel Sounds Skin: Positive: Clear Extremities: Present: normal - Labs and Meds Cardiac Enzymes 01/10/19 01/11/19 Range/Units 10:46 04:29 CK-MB (CK-2) 339.3 H 136.2 H (0.0-4.0) ng/mL CBC 01/10/19 01/10/19 01/11/19 Range/Units 15:15 21:56 04:29 WBC 11.3 H 8.3 (4.5-11.0) K/mm3 RBC 4.93 4.45 (3.65-5.03) M/mm3 Hgb 11.4 L 11.3 L 10.2 L (11.8-15.2) gm/dl Hct 36.7 35.7 32.5 L (35.5-45.6) % Plt Count 231 207 (140-440) K/mm3 Lymph # 0.7 L (1.2-5.4) K/mm3 [place] # 0.9 H (0.0-0.8) K/mm3 Eos # 0.0 (0.0-0.4) K/mm3 Baso # 0.0 (0.0-0.1) K/mm3 Comprehensive Metabolic Panel 01/11/19 Range/Units 04:29 Sodium 139 (137-145) mmol/L Potassium 4.9 D (3.6-5.0) mmol/L Chloride 103.3 (98-107) mmol/L Carbon Dioxide 22 (22-30) mmol/L BUN 21 H (9-20) mg/dL Creatinine 0.8 (0.8-1.5) mg/dL Glucose 183 H (75-100) mg/dL Calcium 7.2 L D (8.4-10.2) mg/dL
--- NOTE | 2019-01-11 12:56 | Progress Note ---
Assessment and Plan Assessment and plan: The high probability of a clinically significant, sudden or life threatening deterioration of the [] system(s) required my full and direct attention, intervention and personal management. The aggregate critical care time was [] minutes. This time is in addition to time spent performing reported procedures but includes the following: [x] Data Review and interpretation [x]x Patient assessment and monitoring of vital signs [x] Documentation x[] Medication orders and management - Patient Problems (1) STEMI (ST elevation myocardial infarction) Current Visit: Yes Status: Acute Qualifiers: Involved coronary artery: unspecified coronary artery Qualified Code(s): I21.3 - ST elevation (STEMI) myocardial infarction of unspecified site Plan to address problem: Patient presents with acute myocardial infarction status post PCI had 100% stenosis of circumflex. Hospital course complicated by cardiac arrest respiratory failure after cold blue. Patient now intubated. Hospital course also complicated by blood loss anemia H&H pending. Has improved since discontinuing Aggrastat. We'll continue aspirin. Wean dopamine. cardiology following as well. (2) Acute respiratory failure Current Visit: Yes Status: Acute Plan to address problem: patient continues to improve hopefully can be extubated given improvement in vital signs and cognition. (3) Diabetes Current Visit: Yes Status: Acute Plan to address problem: patient blood glucose stable recurrent sliding-scale insulin. (4) Acute renal failure Current Visit: Yes Status: Acute Plan to address problem: at this point appears to be secondary to prerenal azotemia. May give short trial of gentle hydration. History Interval history: patient remains intubated, sedated has clinically improved over the past 24 hours. More alert.follows commands and has been able to wean dopamine drip. Hospitalist Physical - Constitutional Vitals: Temp Pulse Resp BP Pulse Ox 98.4 F 97 H 18 120/58 100 01/11/19 12:00 01/11/19 12:02 01/11/19 07:00 01/11/19 12:01/11/19 12:05 General appearance: Present: no acute distress, well-nourished - EENT Eyes: Present: PERRL, EOM intact ENT: hearing intact, clear oral mucosa, dentition normal - Neck Neck: Present: supple, normal ROM - Respiratory Respiratory effort: normal Respiratory: bilateral: diminished, rhonchi - Cardiovascular Rhythm: regular - Extremities Extremities: no ischemia, pulses intact, pulses symmetrical, No edema, normal temperature, normal color Peripheral Pulses: within normal limits - Abdominal General gastrointestinal: soft, non-tender, non-distended, normal bowel sounds - Integumentary Integumentary: Present: clear, warm, dry Results - Labs CBC & Chem 7: 01/11/19 04:29 01/11/19 04:29 Labs: Laboratory Last Values WBC 8.3 K/mm3 (4.5-11.0) 01/11/19 04:29 RBC 4.45 M/mm3 (3.65-5.03) 01/11/19 04:29 Hgb 10.2 gm/dl (11.8-15.2) L 01/11/19 04:29 Hct 32.5 % (35.5-45.6) L 01/11/19 04:29 MCV 73 fl (84-94) L 01/11/19 04:29 MCH 23 pg (28-32) L 01/11/19 04:29 MCHC 31 % (32-34) L 01/11/19 04:29 RDW 14.2 % (13.2-15.2) 01/11/19 04:29 Plt Count 207 K/mm3 (140-440) 01/11/19 04:29 Lymph % (Auto) 8.3 % (13.4-35.0) L 01/11/19 04:29 [place] % (Auto) 11.4 % (0.0-7.3) H 01/11/19 04:29 Eos % (Auto) 0.0 % (0.0-4.3) 01/11/19 04:29 Baso % (Auto) 0.2 % (0.0-1.8) 01/11/19 04:29 Lymph # 0.7 K/mm3 (1.2-5.4) L 01/11/19 04:29 [place] # 0.9 K/mm3 (0.0-0.8) H 01/11/19 04:29 Eos # 0.0 K/mm3 (0.0-0.4) 01/11/19 04:29 Baso # 0.0 K/mm3 (0.0-0.1) 01/11/19 04:29 Seg Neutrophils % 80.1 % (40.0-70.0) H 01/11/19 04:29 Seg Neutrophils # 6.6 K/mm3 (1.8-7.7) 01/11/19 04:29 PT 15.8 Sec. (12.2-14.9) H 01/10/19 07:50 INR 1.18 (0.87-1.13) H 01/10/19 07:50 APTT 129.2 Sec. (24.2-36.6) H* 01/10/19 07:50 Heparin Anti-Xa Level 0.40 U.I./ml (0.3-0.7) 01/10/19 19:02 POC ABG pH 7.385 (7.35-7.45) 01/11/19 05:47 POC ABG pCO2 40.2 (35-45) 01/11/19 05:47 POC ABG pO2 121 (80-105) H 01/11/19 05:47 POC ABG HCO3 24.0 01/11/19 05:47 POC ABG Total CO2 25 01/11/19 05:47 POC ABG O2 Sat 99 01/11/19 05:47 POC ABG Base Excess -1 01/11/19 05:47 FiO2 30 % 01/11/19 05:47 Sodium 139 mmol/L (137-145) 01/11/19 04:29 Potassium 4.9 mmol/L (3.6-5.0) D 01/11/19 04:29 Chloride 103.3 mmol/L (98-107) 01/11/19 04:29 Carbon Dioxide 22 mmol/L (22-30) 01/11/19 04:29 Anion Gap 19 mmol/L 01/11/19 04:29 BUN 21 mg/dL (9-20) H 01/11/19 04:29 Creatinine 0.8 mg/dL (0.8-1.5) 01/11/19 04:29 Estimated GFR > 60 ml/min 01/11/19 04:29 BUN/Creatinine Ratio 26 % 01/11/19 04:29 Glucose 183 mg/dL (75-100) H 01/11/19 04:29 POC Glucose 147 (70-105) H 01/11/19 11:52 Calcium 7.2 mg/dL (8.4-10.2) L D 01/11/19 04:29 Total Creatine Kinase 4153 units/L (55-170) H 01/11/19 04:29 CK-MB (CK-2) 136.2 ng/mL (0.0-4.0) H 01/11/19 04:29 CK-MB (CK-2) Rel Index 3.2 (0-4) 01/11/19 04:29 Troponin T 5.810 ng/mL (0.00-0.029) H* D 01/11/19 04:29 Triglycerides 89 mg/dL (2-149) 01/10/19 07:50 Cholesterol 115 mg/dL (50-199) 01/10/19 07:50 LDL Cholesterol Direct 70 mg/dL (50-130) 01/10/19 07:50 HDL Cholesterol 45 mg/dL (40-59) 01/10/19 07:50 Cholesterol/HDL Ratio 2.55 % 01/10/19 07:50 Blood Type A POSITIVE 01/10/19 03:46 Antibody Screen Negative 01/10/19 03:46
--- NOTE | 2019-01-11 15:15 | Progress Note ---
Assessment and Plan 48 y/o male with cardiac arrest secondary to STEMI and acute respiratory failure status post PCI 1. Continue vent support, wean FiO2 as tolerated 2. PRN fentanyl for Pain, currently no continuous sedation needed 3. Balloon pump and anticoagulation per cards 4. Would like echo report first prior to extubation. 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 Echo done but not interpreted yet. CCT 31 minutes. Subjective Date of service: 01/11/19 Interval history: Remains awake and appropriate. Follows commands. Off dopamine now. Per cards balloon pump to come out tomorrow. No family at bedside. Asked RT to place on PSV trial. Has had echo done but not read yet. Objective Vital Signs - 12hr 01/11/19 01/11/19 01/11/19 04:00 04:27 05:00 Temperature Pulse Rate 102 H Respiratory 18 18 Rate Blood Pressure O2 Sat by Pulse 100 100 100 Oximetry 01/11/19 01/11/19 01/11/19 05:41 05:51 06:00 Temperature Pulse Rate 102 H 103 H 106 H Respiratory 15 18 17 Rate Blood Pressure 105/72 107/62 107/68 O2 Sat by Pulse 100 100 100 Oximetry 01/11/19 01/11/19 01/11/19 06:11 06:21 06:30 Temperature Pulse Rate 101 H 100 H 100 H Respiratory 18 18 18 Rate Blood Pressure 107/68 116/74 124/82 O2 Sat by Pulse 100 100 Oximetry 01/11/19 01/11/19 01/11/19 06:41 06:51 07:00 Temperature Pulse Rate 100 H 99 H 99 H Respiratory 18 18 18 Rate Blood Pressure 124/82 113/77 122/71 O2 Sat by Pulse 100 100 100 Oximetry 01/11/19 01/11/19 01/11/19 07:11 07:21 07:31 Temperature Pulse Rate 100 H 98 H 96 H Respiratory 18 18 18 Rate Blood Pressure 122/71 113/65 104/83 O2 Sat by Pulse 100 100 100 Oximetry 01/11/19 01/11/19 01/11/19 07:41 07:51 08:00 Temperature 98.5 F Pulse Rate 95 H 98 H 93 H Respiratory 18 19 18 Rate Blood Pressure 104/83 115/82 122/77 O2 Sat by Pulse 100 100 100 Oximetry 01/11/19 01/11/19 01/11/19 08:10 08:11 08:21 Temperature Pulse Rate 93 H 98 H Respiratory 18 18 Rate Blood Pressure 122/77 116/80 O2 Sat by Pulse 100 100 100 Oximetry 01/11/19 01/11/19 01/11/19 08:30 08:40 08:51 Temperature Pulse Rate 98 H 94 H 96 H Respiratory 18 18 18 Rate Blood Pressure 114/83 111/76 111/74 O2 Sat by Pulse 100 100 Oximetry 01/11/19 01/11/19 01/11/19 09:00 09:11 09:21 Temperature Pulse Rate 94 H 90 96 H Respiratory 15 18 18 Rate Blood Pressure 108/70 108/70 111/74 O2 Sat by Pulse 100 100 100 Oximetry 01/11/19 01/11/19 01/11/19 09:31 09:41 09:51 Temperature Pulse Rate 92 H 94 H 98 H Respiratory 18 18 17 Rate Blood Pressure 113/78 113/78 107/81 O2 Sat by Pulse 100 100 100 Oximetry 01/11/19 01/11/19 01/11/19 10:00 10:11 10:21 Temperature Pulse Rate 96 H 94 H 94 H Respiratory 18 19 18 Rate Blood Pressure 125/80 125/80 132/66 O2 Sat by Pulse 100 100 100 Oximetry 01/11/19 01/11/19 01/11/19 10:31 10:41 10:51 Temperature Pulse Rate 96 H 94 H 99 H Respiratory 18 18 16 Rate Blood Pressure 121/65 121/65 112/78 O2 Sat by Pulse 100 100 100 Oximetry 01/11/19 01/11/19 01/11/19 11:00 11:11 11:20 Temperature Pulse Rate 97 H 97 H 98 H Respiratory 18 18 18 Rate Blood Pressure 116/65 116/65 111/74 O2 Sat by Pulse 100 100 100 Oximetry 01/11/19 01/11/19 01/11/19 11:31 11:41 11:51 Temperature Pulse Rate 97 H 100 H 98 H Respiratory 18 17 18 Rate Blood Pressure 129/61 129/61 140/66 O2 Sat by Pulse 100 100 100 Oximetry 01/11/19 01/11/19 01/11/19 12:00 12:02 12:05 Temperature 98.4 F Pulse Rate 96 H 97 H Respiratory 18 Rate Blood Pressure 120/58 120/58 O2 Sat by Pulse 100 100 100 Oximetry 01/11/19 01/11/19 01/11/19 12:10 12:20 12:31 Temperature Pulse Rate 97 H 96 H 101 H Respiratory 18 18 17 Rate Blood Pressure 120/58 117/83 124/88 O2 Sat by Pulse 100 100 100 Oximetry 01/11/19 01/11/19 01/11/19 12:41 12:51 13:00 Temperature Pulse Rate 97 H 96 H 97 H Respiratory 18 17 18 Rate Blood Pressure 124/88 121/66 117/55 O2 Sat by Pulse 100 100 100 Oximetry 01/11/19 01/11/19 01/11/19 13:11 13:21 13:30 Temperature Pulse Rate 95 H 96 H 95 H Respiratory 18 18 18 Rate Blood Pressure 117/55 113/63 128/53 O2 Sat by Pulse 100 100 100 Oximetry 01/11/19 01/11/19 01/11/19 13:41 13:51 15:07 Temperature Pulse Rate 94 H 94 H 105 H Respiratory 18 17 20 Rate Blood Pressure 128/53 114/83 139/73 O2 Sat by Pulse 100 100 100 Oximetry Constitutional: no acute distress, alert Eyes: non-icteric ENT: other (orally intubated and critically ill on the vent) Effort: normal Ascultation: Bilateral: clear Percussion: Bilateral: not dull Gastrointestinal: soft Neurologic: normal mental status CBC and BMP: 01/11/19 04:29 01/11/19 04:29 ABG, PT/INR, D-dimer: ABG POC ABG pH 7.385 (7.35-7.45) 01/11/19 05:47 POC ABG pCO2 40.2 (35-45) 01/11/19 05:47 POC ABG pO2 121 (80-105) H 01/11/19 05:47 POC ABG HCO3 24.0 01/11/19 05:47 POC ABG Total CO2 25 01/11/19 05:47 POC ABG O2 Sat 99 01/11/19 05:47 PT/INR, D-dimer PT 15.8 Sec. (12.2-14.9) H 01/10/19 07:50 INR 1.18 (0.87-1.13) H 01/10/19 07:50 Abnormal lab findings: Abnormal Labs 01/10/19 01/10/19 01/10/19 03:46 03:46 03:46 WBC RBC 5.52 H Hgb Hct MCV 73 L MCH 23 L MCHC Lymph % (Auto) [place] % (Auto) 12.7 H Lymph # [place] # Seg Neutrophils % PT INR APTT 69.0 H* POC ABG pH POC ABG pO2 Potassium 3.5 L Carbon Dioxide 21 L BUN Creatinine 0.7 L Glucose 191 H POC Glucose Calcium Total Creatine Kinase 215 H CK-MB (CK-2) 4.2 H CK-MB (CK-2) Rel Index Troponin T 01/10/19 01/10/19 01/10/19 04:15 07:50 07:50 WBC RBC Hgb Hct MCV MCH MCHC Lymph % (Auto) [place] % (Auto) Lymph # [place] # Seg Neutrophils % PT 15.8 H INR 1.18 H APTT 129.2 H* POC ABG pH POC ABG pO2 Potassium Carbon Dioxide BUN Creatinine Glucose POC Glucose 189 H Calcium Total Creatine Kinase 8450 H CK-MB (CK-2) 398.1 H CK-MB (CK-2) Rel Index 4.7 H Troponin T 10.730 H* D 01/10/19 01/10/19 01/10/19 08:19 10:46 12:37 WBC RBC Hgb Hct MCV MCH MCHC Lymph % (Auto) [place] % (Auto) Lymph # [place] # Seg Neutrophils % PT INR APTT POC ABG pH 7.265 L POC ABG pO2 287 H Potassium Carbon Dioxide BUN Creatinine Glucose POC Glucose 195 H Calcium Total Creatine Kinase 7146 H CK-MB (CK-2) 339.3 H CK-MB (CK-2) Rel Index 4.7 H Troponin T 10.800 H* 01/10/19 01/10/19 01/10/19 15:15 18:03 21:56 WBC 11.3 H RBC Hgb 11.4 L 11.3 L Hct MCV 72 L MCH 23 L MCHC Lymph % (Auto) [place] % (Auto) Lymph # [place] # Seg Neutrophils % PT INR APTT POC ABG pH POC ABG pO2 Potassium Carbon Dioxide BUN Creatinine Glucose POC Glucose 185 H Calcium Total Creatine Kinase CK-MB (CK-2) CK-MB (CK-2) Rel Index Troponin T 01/10/19 01/11/19 01/11/19 23:50 04:29 04:29 WBC RBC Hgb 10.2 L Hct 32.5 L MCV 73 L MCH 23 L MCHC 31 L Lymph % (Auto) 8.3 L [place] % (Auto) 11.4 H Lymph # 0.7 L [place] # 0.9 H Seg Neutrophils % 80.1 H PT INR APTT POC ABG pH POC ABG pO2 Potassium Carbon Dioxide BUN 21 H Creatinine Glucose 183 H POC Glucose 186 H Calcium 7.2 L D Total Creatine Kinase 4153 H CK-MB (CK-2) 136.2 H CK-MB (CK-2) Rel Index Troponin T 5.810 H* D 01/11/19 01/11/19 01/11/19 05:47 06:08 11:52 WBC RBC Hgb Hct MCV MCH MCHC Lymph % (Auto) [place] % (Auto) Lymph # [place] # Seg Neutrophils % PT INR APTT POC ABG pH POC ABG pO2 121 H Potassium Carbon Dioxide BUN Creatinine Glucose POC Glucose 179 H 147 H Calcium Total Creatine Kinase CK-MB (CK-2) CK-MB (CK-2) Rel Index Troponin T
[2019-01-12 00:48] LABS: Hemoglobin 8.7 gm/dl (11.8-15.2); Mean Corpuscular HGB Conc 32 % (32-34); Mean Corpuscular Volume 73 fl (84-94); Platelet Count 165 K/mm3 (140-440); Red Blood Count 3.68 M/mm3 (3.65-5.03); Red Cell Distribution Width 14.3 % (13.2-15.2)
[2019-01-12 05:23] LABS: Hematocrit 27.2 % (35.5-45.6); Hemoglobin 8.7 gm/dl (11.8-15.2); Mean Corpuscular HGB Conc 32 % (32-34); Mean Corpuscular Volume 73 fl (84-94); Platelet Count 159 K/mm3 (140-440); Red Blood Count 3.71 M/mm3 (3.65-5.03); Red Cell Distribution Width 14.5 % (13.2-15.2)
[2019-01-12] MEDS: HEPARIN/ 0.45% NACL-25,000 UNIT/500 ML 25,000 UNIT/500 ML BAG IV SCH (06:33)
[2019-01-12] MEDS: NACL 0.9% 1000 ML 1,000 ML IV SCH (06:34)
[2019-01-12] MEDS: HumaLOG SUB-Q SCH ×4 (08:08→18:53)
[2019-01-12] MEDS ORDERED: HEPARIN 1,000 UNIT in NACL 0.9% 500 ML 500 ML IV SCH (09:15)
[2019-01-12] MEDS ORDERED: LASIX IV ONE (10:00)
[2019-01-12] MEDS: PREVACID SOLUTAB FEEDTUBE SCH (10:09)
[2019-01-12] MEDS: BABY ASPIRIN PO SCH (10:09)
[2019-01-12] MEDS: BRILINTA PO SCH ×2 (10:09→21:59)
--- NOTE | 2019-01-12 10:57 | Progress Note ---
<MAHI DOMINGUEZ - Last Filed: 01/12/19 10:53> Assessment and Plan Acute inferior ST elevation [place] s/p PCI of circumflex Status post cardiac arrest in the ER Cardiogenic shock s/p IABG Diabetes mellitus Bloody drainage from NG tube: Now resolved. Plan Continue IABP - will plan to remove IABP today. Continue DAPT with Brilinta and aspirin. Echocardiogra results are pending. Subjective Date of service: 01/12/19 Interval history: Patient alert but remains intubated on the vent. Balloon pump frequency reduced from 1:1 to 1:3 today. Objective Vital Signs Temp Pulse Pulse Resp BP Pulse Ox 01/12/19 09:28 100 H 140/69 100 01/12/19 09:24 102 H 140/69 100 01/12/19 09:00 97 H 18 134/71 100 01/12/19 08:00 97.6 F 95 H 97 H 18 133/64 100 01/12/19 07:00 102 H 18 127/54 100 01/12/19 06:00 99 H 97 H 18 111/60 100 01/12/19 05:00 97.7 F 103 H 18 125/59 100 01/12/19 04:00 102 H 101 H 18 116/69 100 01/12/19 03:00 103 H 18 100/57 100 01/12/19 02:26 103 H 100/57 100 01/12/19 02:00 103 H 101 H 18 107/56 100 01/12/19 01:00 108 H 18 110/56 100 01/12/19 00:00 101 H 101 H 18 109/62 100 01/11/19 23:24 103 H 120/63 100 01/11/19 23:00 101 H 18 115/62 100 01/11/19 22:00 102 H 101 H 18 116/65 100 01/11/19 21:00 101 H 18 115/62 100 01/11/19 20:00 99.5 F 101 H 101 H 18 125/62 100 01/11/19 19:39 105 H 139/73 100 01/11/19 16:15 100 01/11/19 16:00 98.1 F 01/11/19 15:07 105 H 20 139/73 100 01/11/19 13:51 94 H 17 114/83 100 01/11/19 13:41 94 H 18 128/53 100 01/11/19 13:30 95 H 18 128/53 100 01/11/19 13:21 96 H 18 113/63 100 01/11/19 13:11 95 H 18 117/55 100 01/11/19 13:00 97 H 18 117/55 100 01/11/19 12:51 96 H 17 121/66 100 01/11/19 12:41 97 H 18 124/88 100 01/11/19 12:31 101 H 17 124/88 100 01/11/19 12:20 96 H 18 117/83 100 01/11/19 12:10 97 H 18 120/58 100 01/11/19 12:05 100 01/11/19 12:02 97 H 120/58 100 01/11/19 12:00 98.4 F 96 H 18 120/58 100 01/11/19 11:51 98 H 18 140/66 100 01/11/19 11:41 100 H 17 129/61 100 01/11/19 11:31 97 H 18 129/61 100 01/11/19 11:20 98 H 18 111/74 100 01/11/19 11:11 97 H 18 116/65 100 01/11/19 11:00 97 H 18 116/65 100 - Physical Examination General: Other (Intubated, awake.) HEENT: Positive: EOMI Neck: Positive: neck supple Cardiac: Positive: Reg Rate and Rhythm - Labs and Meds CBC 01/11/19 01/12/19 Range/Units 23:35 05:00 WBC 9.0 8.9 (4.5-11.0) K/mm3 RBC 3.68 3.71 (3.65-5.03) M/mm3 Hgb 8.7 L 8.7 L (11.8-15.2) gm/dl Hct 27.0 L 27.2 L (35.5-45.6) % Plt Count 165 159 (140-440) K/mm3 <JOHN THRASHER - Last Filed: 01/12/19 15:30> Assessment and Plan I have seen and evaluated the patient, and agree with the assessment and plan. Plan to stop heparin gtt and pull the balloon pump today. Objective Vital Signs Temp Pulse Pulse Resp BP Pulse Ox 01/12/19 11:00 105 H 18 134/71 100 01/12/19 10:56 100 01/12/19 10:00 97 H 97 H 18 134/71 100 01/12/19 09:28 100 H 140/69 100 01/12/19 09:24 102 H 140/69 100 01/12/19 09:00 97 H 18 134/71 100 01/12/19 08:00 97.6 F 95 H 97 H 18 133/64 100 01/12/19 07:00 102 H 18 127/54 100 01/12/19 06:00 99 H 97 H 18 111/60 100 01/12/19 05:00 97.7 F 103 H 18 125/59 100 01/12/19 04:00 102 H 101 H 18 116/69 100 01/12/19 03:00 103 H 18 100/57 100 01/12/19 02:26 103 H 100/57 100 01/12/19 02:00 103 H 101 H 18 107/56 100 01/12/19 01:00 108 H 18 110/56 100 01/12/19 00:00 101 H 101 H 18 109/62 100 01/11/19 23:24 103 H 120/63 100 01/11/19 23:00 101 H 18 115/62 100 01/11/19 22:00 102 H 101 H 18 116/65 100 01/11/19 21:00 101 H 18 115/62 100 01/11/19 20:00 99.5 F 101 H 101 H 18 125/62 100 01/11/19 19:39 105 H 139/73 100 01/11/19 16:15 100 01/11/19 16:00 98.1 F - Labs and Meds CBC 01/11/19 01/12/19 01/12/19 Range/Units 23:35 05:00 10:20 WBC 9.0 8.9 8.5 (4.5-11.0) K/mm3 RBC 3.68 3.71 3.56 L (3.65-5.03) M/mm3 Hgb 8.7 L 8.7 L 8.2 L (11.8-15.2) gm/dl Hct 27.0 L 27.2 L 26.0 L (35.5-45.6) % Plt Count 165 159 151 (140-440) K/mm3
[2019-01-12 11:03] LABS: Hemoglobin 8.2 gm/dl (11.8-15.2); Mean Corpuscular HGB Conc 32 % (32-34); Mean Corpuscular Volume 73 fl (84-94); Platelet Count 151 K/mm3 (140-440); Red Blood Count 3.56 M/mm3 (3.65-5.03); Red Cell Distribution Width 14.4 % (13.2-15.2)
--- NOTE | 2019-01-12 11:21 | Progress Note ---
Assessment and Plan 48 y/o male with cardiac arrest secondary to STEMI and acute respiratory failure status post PCI 1. Attempt extubation today. 2. May need PRN bipap therapy but will assess. 3. Balloon pump and anticoagulation per cards 4. Echo not read yet, positive the last 3 days, will give a one time dose of lasix and then extubate. 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 CCT 31 minutes. Subjective Date of service: 01/12/19 Interval history: Awake and alert. NO acute issues. Balloon pump remains. Now down to 1:3 ratio. Tolerated CPAP for 4 hours but did not extubate as I was waiting on the echo results. Still not read today. Objective Vital Signs - 12hr 01/11/19 01/12/19 01/12/19 23:24 00:00 01:00 Temperature Pulse Rate 103 H 101 H 108 H Pulse Rate [ 101 H Right Radial] Respiratory 18 18 Rate Blood Pressure 120/63 109/62 110/56 O2 Sat by Pulse 100 100 100 Oximetry 01/12/19 01/12/19 01/12/19 02:00 02:26 03:00 Temperature Pulse Rate 103 H 103 H 103 H Pulse Rate [ 101 H Right Radial] Respiratory 18 18 Rate Blood Pressure 107/56 100/57 100/57 O2 Sat by Pulse 100 100 100 Oximetry 01/12/19 01/12/19 01/12/19 04:00 05:00 06:00 Temperature 97.7 F Pulse Rate 102 H 103 H 99 H Pulse Rate [ 101 H 97 H Right Radial] Respiratory 18 18 18 Rate Blood Pressure 116/69 125/59 111/60 O2 Sat by Pulse 100 100 100 Oximetry 01/12/19 01/12/19 01/12/19 07:00 08:00 09:00 Temperature 97.6 F Pulse Rate 102 H 95 H 97 H Pulse Rate [ 97 H Right Radial] Respiratory 18 18 18 Rate Blood Pressure 127/54 133/64 134/71 O2 Sat by Pulse 100 100 100 Oximetry 01/12/19 01/12/19 01/12/19 09:24 09:28 10:00 Temperature Pulse Rate 102 H 100 H 97 H Pulse Rate [ Right Radial] Respiratory 18 Rate Blood Pressure 140/69 140/69 134/71 O2 Sat by Pulse 100 100 100 Oximetry 01/12/19 01/12/19 10:56 11:00 Temperature Pulse Rate 105 H Pulse Rate [ Right Radial] Respiratory 18 Rate Blood Pressure 134/71 O2 Sat by Pulse 100 100 Oximetry Constitutional: no acute distress, alert Eyes: non-icteric ENT: other (orally intubated and critically ill on the vent) Effort: normal Ascultation: Bilateral: clear Percussion: Bilateral: not dull Gastrointestinal: soft Neurologic: normal mental status CBC and BMP: 01/12/19 10:20 01/11/19 04:29 ABG, PT/INR, D-dimer: ABG POC ABG pH 7.341 (7.35-7.45) L 01/12/19 04:37 POC ABG pCO2 32.0 (35-45) L 01/12/19 04:37 POC ABG pO2 128 (80-105) H 01/12/19 04:37 POC ABG HCO3 17.3 01/12/19 04:37 POC ABG Total CO2 18 01/12/19 04:37 POC ABG O2 Sat 99 01/12/19 04:37 PT/INR, D-dimer PT 15.8 Sec. (12.2-14.9) H 01/10/19 07:50 INR 1.18 (0.87-1.13) H 01/10/19 07:50 Abnormal lab findings: Abnormal Labs 01/10/19 01/10/19 01/10/19 03:46 03:46 03:46 WBC RBC 5.52 H Hgb Hct MCV 73 L MCH 23 L MCHC Lymph % (Auto) [place] % (Auto) 12.7 H Lymph # [place] # Seg Neutrophils % PT INR APTT 69.0 H* Activated Clotting Time Heparin Anti-Xa Level POC ABG pH POC ABG pCO2 POC ABG pO2 Potassium 3.5 L Carbon Dioxide 21 L BUN Creatinine 0.7 L Glucose 191 H POC Glucose Calcium Total Creatine Kinase 215 H CK-MB (CK-2) 4.2 H CK-MB (CK-2) Rel Index Troponin T 01/10/19 01/10/19 01/10/19 04:15 04:51 05:09 WBC RBC Hgb Hct MCV MCH MCHC Lymph % (Auto) [place] % (Auto) Lymph # [place] # Seg Neutrophils % PT INR APTT Activated Clotting Time 423 H 263 H Heparin Anti-Xa Level POC ABG pH POC ABG pCO2 POC ABG pO2 Potassium Carbon Dioxide BUN Creatinine Glucose POC Glucose 189 H Calcium Total Creatine Kinase CK-MB (CK-2) CK-MB (CK-2) Rel Index Troponin T 01/10/19 01/10/19 01/10/19 07:50 07:50 08:19 WBC RBC Hgb Hct MCV MCH MCHC Lymph % (Auto) [place] % (Auto) Lymph # [place] # Seg Neutrophils % PT 15.8 H INR 1.18 H APTT 129.2 H* Activated Clotting Time Heparin Anti-Xa Level POC ABG pH 7.265 L POC ABG pCO2 POC ABG pO2 287 H Potassium Carbon Dioxide BUN Creatinine Glucose POC Glucose Calcium Total Creatine Kinase 8450 H CK-MB (CK-2) 398.1 H CK-MB (CK-2) Rel Index 4.7 H Troponin T 10.730 H* D 01/10/19 01/10/19 01/10/19 10:46 12:37 15:15 WBC RBC Hgb 11.4 L Hct MCV MCH MCHC Lymph % (Auto) [place] % (Auto) Lymph # [place] # Seg Neutrophils % PT INR APTT Activated Clotting Time Heparin Anti-Xa Level POC ABG pH POC ABG pCO2 POC ABG pO2 Potassium Carbon Dioxide BUN Creatinine Glucose POC Glucose 195 H Calcium Total Creatine Kinase 7146 H CK-MB (CK-2) 339.3 H CK-MB (CK-2) Rel Index 4.7 H Troponin T 10.800 H* 01/10/19 01/10/19 01/10/19 18:03 21:56 23:50 WBC 11.3 H RBC Hgb 11.3 L Hct MCV 72 L MCH 23 L MCHC Lymph % (Auto) [place] % (Auto) Lymph # [place] # Seg Neutrophils % PT INR APTT Activated Clotting Time Heparin Anti-Xa Level POC ABG pH POC ABG pCO2 POC ABG pO2 Potassium Carbon Dioxide BUN Creatinine Glucose POC Glucose 185 H 186 H Calcium Total Creatine Kinase CK-MB (CK-2) CK-MB (CK-2) Rel Index Troponin T 01/11/19 01/11/19 01/11/19 04:29 04:29 05:47 WBC RBC Hgb 10.2 L Hct 32.5 L MCV 73 L MCH 23 L MCHC 31 L Lymph % (Auto) 8.3 L [place] % (Auto) 11.4 H Lymph # 0.7 L [place] # 0.9 H Seg Neutrophils % 80.1 H PT INR APTT Activated Clotting Time Heparin Anti-Xa Level POC ABG pH POC ABG pCO2 POC ABG pO2 121 H Potassium Carbon Dioxide BUN 21 H Creatinine Glucose 183 H POC Glucose Calcium 7.2 L D Total Creatine Kinase 4153 H CK-MB (CK-2) 136.2 H CK-MB (CK-2) Rel Index Troponin T 5.810 H* D 01/11/19 01/11/19 01/11/19 06:08 11:52 17:46 WBC RBC Hgb Hct MCV MCH MCHC Lymph % (Auto) [place] % (Auto) Lymph # [place] # Seg Neutrophils % PT INR APTT Activated Clotting Time Heparin Anti-Xa Level POC ABG pH POC ABG pCO2 POC ABG pO2 Potassium Carbon Dioxide BUN Creatinine Glucose POC Glucose 179 H 147 H 159 H Calcium Total Creatine Kinase CK-MB (CK-2) CK-MB (CK-2) Rel Index Troponin T 01/11/19 01/11/19 01/11/19 19:36 23:35 23:45 WBC RBC Hgb 8.7 L Hct 27.0 L MCV 73 L MCH 24 L MCHC Lymph % (Auto) [place] % (Auto) Lymph # [place] # Seg Neutrophils % PT INR APTT Activated Clotting Time Heparin Anti-Xa Level 0.21 L POC ABG pH POC ABG pCO2 POC ABG pO2 Potassium Carbon Dioxide BUN Creatinine Glucose POC Glucose 109 H Calcium Total Creatine Kinase CK-MB (CK-2) CK-MB (CK-2) Rel Index Troponin T 01/12/19 01/12/19 01/12/19 04:37 05:00 05:00 WBC RBC Hgb 8.7 L Hct 27.2 L MCV 73 L MCH 23 L MCHC Lymph % (Auto) [place] % (Auto) Lymph # [place] # Seg Neutrophils % PT INR APTT Activated Clotting Time Heparin Anti-Xa Level 0.21 L POC ABG pH 7.341 L POC ABG pCO2 32.0 L POC ABG pO2 128 H Potassium Carbon Dioxide BUN Creatinine Glucose POC Glucose Calcium Total Creatine Kinase CK-MB (CK-2) CK-MB (CK-2) Rel Index Troponin T 01/12/19 01/12/19 06:13 10:20 WBC RBC 3.56 L Hgb 8.2 L Hct 26.0 L MCV 73 L MCH 23 L MCHC Lymph % (Auto) [place] % (Auto) Lymph # [place] # Seg Neutrophils % PT INR APTT Activated Clotting Time Heparin Anti-Xa Level POC ABG pH POC ABG pCO2 POC ABG pO2 Potassium Carbon Dioxide BUN Creatinine Glucose POC Glucose 159 H Calcium Total Creatine Kinase CK-MB (CK-2) CK-MB (CK-2) Rel Index Troponin T
--- NOTE | 2019-01-12 16:13 | Progress Note ---
Assessment and Plan Assessment and plan: (1) STEMI (ST elevation myocardial infarction): Patient presents with acute myocardial infarction status post PCI had 100% stenosis of circumflex. Hospital course complicated by cardiac arrest respirato ry failure after cold blue. Patient was intubated. Hospital course also complicated by blood loss anemia current H&H is stable. Patient is on heparin drip Cardiology is following the patient (2) Acute respiratory failure - Resolved, patient extubated this morning (3) Diabetes patient blood glucose stable continue with sliding-scale insulin. (4) Acute renal failure - Resolved with IV fluids Disposition - Continue ICU care History Interval history: Patient was seen and evaluated this morning. Patient was extubated this morning. No new complaints. Hospitalist Physical - Physical exam Narrative exam: Not in cardiopulmonary distress. The patient is obese. Vital signs as documented. Head exam is unremarkable. No scleral icterus . Neck is without jugular venous distension, thyromegaly, or carotid bruits. Lungs are clear to auscultation. Cardiac exam reveals regular rate and Rhythm. First and second heart sounds normal. No murmurs, rubs or gallops. Abdominal exam reveals normal bowel sounds, no masses, no organomegaly and no aortic enlargement. Extremities are nonedematous and both femoral and pedal pulses are normal. 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 No focal weakness. - Constitutional Vitals: Temp Pulse Resp BP Pulse Ox 97.6 F 105 H 18 134/71 100 01/12/19 08:00 01/12/19 11:00 01/12/19 11:00 01/12/19 11:00 01/12/19 11:00 General appearance: Present: no acute distress, well-nourished Results - Labs CBC & Chem 7: 01/12/19 10:20 01/11/19 04:29 Labs: Laboratory Last Values WBC 8.5 K/mm3 (4.5-11.0) 01/12/19 10:20 RBC 3.56 M/mm3 (3.65-5.03) L 01/12/19 10:20 Hgb 8.2 gm/dl (11.8-15.2) L 01/12/19 10:20 Hct 26.0 % (35.5-45.6) L 01/12/19 10:20 MCV 73 fl (84-94) L 01/12/19 10:20 MCH 23 pg (28-32) L 01/12/19 10:20 MCHC 32 % (32-34) 01/12/19 10:20 RDW 14.4 % (13.2-15.2) 01/12/19 10:20 Plt Count 151 K/mm3 (140-440) 01/12/19 10:20 Lymph % (Auto) 8.3 % (13.4-35.0) L 01/11/19 04:29 [place] % (Auto) 11.4 % (0.0-7.3) H 01/11/19 04:29 Eos % (Auto) 0.0 % (0.0-4.3) 01/11/19 04:29 Baso % (Auto) 0.2 % (0.0-1.8) 01/11/19 04:29 Lymph # 0.7 K/mm3 (1.2-5.4) L 01/11/19 04:29 [place] # 0.9 K/mm3 (0.0-0.8) H 01/11/19 04:29 Eos # 0.0 K/mm3 (0.0-0.4) 01/11/19 04:29 Baso # 0.0 K/mm3 (0.0-0.1) 01/11/19 04:29 Seg Neutrophils % 80.1 % (40.0-70.0) H 01/11/19 04:29 Seg Neutrophils # 6.6 K/mm3 (1.8-7.7) 01/11/19 04:29 PT 15.8 Sec. (12.2-14.9) H 01/10/19 07:50 INR 1.18 (0.87-1.13) H 01/10/19 07:50 APTT 129.2 Sec. (24.2-36.6) H* 01/10/19 07:50 Activated Clotting Time 263 (74-137) H 01/10/19 05:09 Heparin Anti-Xa Level 0.21 U.I./ml (0.3-0.7) L 01/12/19 05:00 POC ABG pH 7.341 (7.35-7.45) L 01/12/19 04:37 POC ABG pCO2 32.0 (35-45) L 01/12/19 04:37 POC ABG pO2 128 (80-105) H 01/12/19 04:37 POC ABG HCO3 17.3 01/12/19 04:37 POC ABG Total CO2 18 01/12/19 04:37 POC ABG O2 Sat 99 01/12/19 04:37 POC ABG Base Excess -8 01/12/19 04:37 FiO2 30 % 01/12/19 04:37 Sodium 139 mmol/L (137-145) 01/11/19 04:29 Potassium 4.9 mmol/L (3.6-5.0) D 01/11/19 04:29 Chloride 103.3 mmol/L (98-107) 01/11/19 04:29 Carbon Dioxide 22 mmol/L (22-30) 01/11/19 04:29 Anion Gap 19 mmol/L 01/11/19 04:29 BUN 21 mg/dL (9-20) H 01/11/19 04:29 Creatinine 0.8 mg/dL (0.8-1.5) 01/11/19 04:29 Estimated GFR > 60 ml/min 01/11/19 04:29 BUN/Creatinine Ratio 26 % 01/11/19 04:29 Glucose 183 mg/dL (75-100) H 01/11/19 04:29 POC Glucose 159 (70-105) H 01/12/19 12:10 Calcium 7.2 mg/dL (8.4-10.2) L D 01/11/19 04:29 Total Creatine Kinase 4153 units/L (55-170) H 01/11/19 04:29 CK-MB (CK-2) 136.2 ng/mL (0.0-4.0) H 01/11/19 04:29 CK-MB (CK-2) Rel Index 3.2 (0-4) 01/11/19 04:29 Troponin T 5.810 ng/mL (0.00-0.029) H* D 01/11/19 04:29 Triglycerides 89 mg/dL (2-149) 01/10/19 07:50 Cholesterol 115 mg/dL (50-199) 01/10/19 07:50 LDL Cholesterol Direct 70 mg/dL (50-130) 01/10/19 07:50 HDL Cholesterol 45 mg/dL (40-59) 01/10/19 07:50 Cholesterol/HDL Ratio 2.55 % 01/10/19 07:50 Blood Type A POSITIVE 01/10/19 03:46 Antibody Screen Negative 01/10/19 03:46
--- NOTE | 2019-01-12 20:17 | XRay Report ---
PROCEDURE: XR CHEST 1V AP TECHNIQUE: AP view of the chest HISTORY: Check tube placement COMPARISONS: 01/11/2019 FINDINGS: The endotracheal tube tip projects 3 cm superior to the gage. The nasogastric tube is in the stomac h. Cardiomediastinal silhouette is stable. There is a clip overlying the left superior mediastinum. N o infiltrate, effusion, or pneumothorax IMPRESSION: No radiographic evidence of acute abnormality. This document is electronically signed by Miesha Cage MD., January 12 2019 08:14:32 PM ET
[2019-01-13] MEDS: HumaLOG SUB-Q SCH ×3 (00:44→12:00)
[2019-01-13 07:02] LABS: Eosinophils % (Auto) 0.3 % (0.0-4.3); Monocytes # (Auto) 0.9 K/mm3 (0.0-0.8); Monocytes % (Auto) 10.4 % (0.0-7.3)
[2019-01-13 07:24] LABS: BUN/Creatinine Ratio 12; Blood Urea Nitrogen 7 mg/dL (9-20); Calcium 7.5 mg/dL (8.4-10.2); Hemolysis Index 3
[2019-01-13 07:48] LABS: Basophils % (Auto) 0.2 % (0.0-1.8); Hematocrit 27.1 % (35.5-45.6); Hemoglobin 8.8 gm/dl (11.8-15.2); Lymphocytes # (Auto) 0.7 K/mm3 (1.2-5.4); Lymphocytes % (Auto) 8.6 % (13.4-35.0); Mean Corpuscular HGB Conc 32 % (32-34); Mean Corpuscular Volume 73 fl (84-94); Platelet Count 179 K/mm3 (140-440); Red Blood Count 3.74 M/mm3 (3.65-5.03); Red Cell Distribution Width 13.9 % (13.2-15.2)
--- NOTE | 2019-01-13 09:02 | Progress Note ---
Assessment and Plan Status post cardiac arrest STEMI status post PCI and aortic balloon placement Acute respiratory failure Recommendations Continue oxygen support if needed to maintain oximetry over 90%. Currently breathing comfortably Continue post PCI recommendations, see cardiology note Can be transferred outside the unit if cleared up by cardiology DVT prophylaxis Ambulate as tolerated Discussed with the patient detail. All questions answered. We'll continue to follow up while in the unit and then sign off. Subjective Date of service: 01/13/19 Principal diagnosis: chest pain, STEMI, respiratory failure Interval history: No chest pain or respiratory complaints this morning. Had breakfast already Objective Vital Signs - 12hr 01/12/19 01/12/19 01/12/19 21:10 21:20 21:30 Temperature Pulse Rate 101 H 100 H 100 H Respiratory 30 H 26 H 19 Rate Blood Pressure 113/78 113/78 113/78 O2 Sat by Pulse 99 99 98 Oximetry 01/12/19 01/12/19 01/12/19 21:40 21:50 22:00 Temperature Pulse Rate 101 H 94 H 99 H Respiratory 27 H 15 12 Rate Blood Pressure 111/74 111/74 116/79 O2 Sat by Pulse 96 98 97 Oximetry 01/12/19 01/12/19 01/12/19 22:10 22:20 22:30 Temperature Pulse Rate 97 H 96 H 94 H Respiratory 21 21 12 Rate Blood Pressure 116/79 116/79 116/79 O2 Sat by Pulse 98 98 99 Oximetry 01/12/19 01/12/19 01/12/19 22:40 22:50 23:00 Temperature Pulse Rate 95 H 94 H 97 H Respiratory 27 H 26 H 23 Rate Blood Pressure 116/79 116/79 139/97 O2 Sat by Pulse 97 98 99 Oximetry 01/12/19 01/12/19 01/12/19 23:10 23:20 23:22 Temperature Pulse Rate 100 H 94 H 94 H Respiratory 22 23 25 H Rate Blood Pressure 139/97 139/97 139/97 O2 Sat by Pulse 96 97 99 Oximetry 01/12/19 01/12/19 01/12/19 23:30 23:38 23:40 Temperature 100.1 F H Pulse Rate 96 H 96 H Respiratory 28 H 22 Rate Blood Pressure 139/97 139/97 O2 Sat by Pulse 97 98 Oximetry 01/12/19 01/13/19 01/13/19 23:50 00:00 00:10 Temperature Pulse Rate 101 H 95 H 106 H Respiratory 23 22 18 Rate Blood Pressure 139/97 123/79 139/97 O2 Sat by Pulse 97 98 98 Oximetry 01/13/19 01/13/19 01/13/19 00:20 00:30 00:40 Temperature Pulse Rate 92 H 97 H 102 H Respiratory 30 H 18 23 Rate Blood Pressure 139/97 139/97 123/79 O2 Sat by Pulse 98 99 98 Oximetry 01/13/19 01/13/19 01/13/19 00:50 01:00 01:10 Temperature Pulse Rate 94 H 99 H 94 H Respiratory 26 H 23 22 Rate Blood Pressure 123/79 122/85 122/85 O2 Sat by Pulse 98 98 98 Oximetry 01/13/19 01/13/19 01/13/19 01:20 01:30 01:40 Temperature Pulse Rate 104 H 97 H 97 H Respiratory 22 26 H 30 H Rate Blood Pressure 122/85 122/85 122/85 O2 Sat by Pulse 96 97 98 Oximetry 01/13/19 01/13/19 01/13/19 01:50 02:00 02:10 Temperature Pulse Rate 99 H 97 H 107 H Respiratory 28 H 22 14 Rate Blood Pressure 122/85 119/79 119/79 O2 Sat by Pulse 98 97 97 Oximetry 01/13/19 01/13/19 01/13/19 02:20 02:25 02:30 Temperature Pulse Rate 100 H 96 H 95 H Respiratory 18 18 27 H Rate Blood Pressure 119/79 119/79 O2 Sat by Pulse 97 99 97 Oximetry 01/13/19 01/13/19 01/13/19 02:40 02:50 03:00 Temperature Pulse Rate 103 H 100 H 99 H Respiratory 20 29 H 17 Rate Blood Pressure 119/79 119/79 126/79 O2 Sat by Pulse 96 97 Oximetry 01/13/19 01/13/19 01/13/19 03:10 03:20 03:30 Temperature Pulse Rate 102 H 91 H 96 H Respiratory 25 H 15 17 Rate Blood Pressure 126/79 126/79 126/79 O2 Sat by Pulse 98 98 99 Oximetry 01/13/19 01/13/19 01/13/19 03:35 03:40 03:50 Temperature 100 F H Pulse Rate 96 H 96 H 92 H Respiratory 18 29 H 20 Rate Blood Pressure 126/79 126/79 O2 Sat by Pulse 99 98 99 Oximetry 01/13/19 01/13/19 01/13/19 04:00 04:10 04:20 Temperature Pulse Rate 98 H 91 H 98 H Respiratory 25 H 25 H 29 H Rate Blood Pressure 129/85 129/85 129/85 O2 Sat by Pulse 96 98 97 Oximetry 01/13/19 01/13/19 01/13/19 04:30 04:40 04:50 Temperature Pulse Rate 104 H 105 H 102 H Respiratory 23 15 21 Rate Blood Pressure 129/85 129/85 129/85 O2 Sat by Pulse 96 97 97 Oximetry 01/13/19 01/13/19 01/13/19 05:00 05:10 05:20 Temperature Pulse Rate 97 H 104 H 100 H Respiratory 19 16 13 Rate Blood Pressure 126/86 126/86 126/86 O2 Sat by Pulse 97 96 98 Oximetry 01/13/19 01/13/19 01/13/19 05:25 05:30 05:40 Temperature 98.8 F Pulse Rate 97 H 103 H Respiratory 15 19 Rate Blood Pressure 126/86 126/86 O2 Sat by Pulse 97 96 Oximetry 01/13/19 01/13/19 01/13/19 05:50 06:00 06:10 Temperature Pulse Rate 96 H 94 H 98 H Respiratory 20 22 21 Rate Blood Pressure 126/86 129/88 129/88 O2 Sat by Pulse 97 98 98 Oximetry 01/13/19 01/13/19 01/13/19 06:15 06:20 07:32 Temperature 100.0 F H Pulse Rate 94 H Respiratory 23 Rate Blood Pressure 129/88 O2 Sat by Pulse 99 98 Oximetry Constitutional: no acute distress, alert Eyes: non-icteric Neck: supple, no lymphadenopathy, no JVD Effort: normal Ascultation: Bilateral: clear Percussion: Bilateral: not dull Cardiovascular: regular rate and rhythm Gastrointestinal: normoactive bowel sounds, soft Integumentary: normal Extremities: no cyanosis, no edema, pink and warm Neurologic: normal mental status, non-focal exam, pupils equal and round, CN II- XII normal Psychiatric: mood appropriate, affect normal CBC and BMP: 01/13/19 06:39 01/13/19 06:39 ABG, PT/INR, D-dimer: ABG POC ABG pH 7.341 (7.35-7.45) L 01/12/19 04:37 POC ABG pCO2 32.0 (35-45) L 01/12/19 04:37 POC ABG pO2 128 (80-105) H 01/12/19 04:37 POC ABG HCO3 17.3 01/12/19 04:37 POC ABG Total CO2 18 01/12/19 04:37 POC ABG O2 Sat 99 01/12/19 04:37 PT/INR, D-dimer PT 15.8 Sec. (12.2-14.9) H 01/10/19 07:50 INR 1.18 (0.87-1.13) H 01/10/19 07:50 Abnormal lab findings: Abnormal Labs 01/10/19 01/10/19 01/10/19 03:46 03:46 03:46 WBC RBC 5.52 H Hgb Hct MCV 73 L MCH 23 L MCHC Lymph % (Auto) [place] % (Auto) 12.7 H Lymph # [place] # Seg Neutrophils % PT INR APTT 69.0 H* Activated Clotting Time Heparin Anti-Xa Level POC ABG pH POC ABG pCO2 POC ABG pO2 Potassium 3.5 L Carbon Dioxide 21 L BUN Creatinine 0.7 L Glucose 191 H POC Glucose Calcium Total Creatine Kinase 215 H CK-MB (CK-2) 4.2 H CK-MB (CK-2) Rel Index Troponin T 01/10/19 01/10/19 01/10/19 04:15 04:51 05:09 WBC RBC Hgb Hct MCV MCH MCHC Lymph % (Auto) [place] % (Auto) Lymph # [place] # Seg Neutrophils % PT INR APTT Activated Clotting Time 423 H 263 H Heparin Anti-Xa Level POC ABG pH POC ABG pCO2 POC ABG pO2 Potassium Carbon Dioxide BUN Creatinine Glucose POC Glucose 189 H Calcium Total Creatine Kinase CK-MB (CK-2) CK-MB (CK-2) Rel Index Troponin T 01/10/19 01/10/19 01/10/19 07:50 07:50 08:19 WBC RBC Hgb Hct MCV MCH MCHC Lymph % (Auto) [place] % (Auto) Lymph # [place] # Seg Neutrophils % PT 15.8 H INR 1.18 H APTT 129.2 H* Activated Clotting Time Heparin Anti-Xa Level POC ABG pH 7.265 L POC ABG pCO2 POC ABG pO2 287 H Potassium Carbon Dioxide BUN Creatinine Glucose POC Glucose Calcium Total Creatine Kinase 8450 H CK-MB (CK-2) 398.1 H CK-MB (CK-2) Rel Index 4.7 H Troponin T 10.730 H* D 01/10/19 01/10/19 01/10/19 10:46 12:37 15:15 WBC RBC Hgb 11.4 L Hct MCV MCH MCHC Lymph % (Auto) [place] % (Auto) Lymph # [place] # Seg Neutrophils % PT INR APTT Activated Clotting Time Heparin Anti-Xa Level POC ABG pH POC ABG pCO2 POC ABG pO2 Potassium Carbon Dioxide BUN Creatinine Glucose POC Glucose 195 H Calcium Total Creatine Kinase 7146 H CK-MB (CK-2) 339.3 H CK-MB (CK-2) Rel Index 4.7 H Troponin T 10.800 H* 01/10/19 01/10/19 01/10/19 18:03 21:56 23:50 WBC 11.3 H RBC Hgb 11.3 L Hct MCV 72 L MCH 23 L MCHC Lymph % (Auto) [place] % (Auto) Lymph # [place] # Seg Neutrophils % PT INR APTT Activated Clotting Time Heparin Anti-Xa Level POC ABG pH POC ABG pCO2 POC ABG pO2 Potassium Carbon Dioxide BUN Creatinine Glucose POC Glucose 185 H 186 H Calcium Total Creatine Kinase CK-MB (CK-2) CK-MB (CK-2) Rel Index Troponin T 01/11/19 01/11/19 01/11/19 04:29 04:29 05:47 WBC RBC Hgb 10.2 L Hct 32.5 L MCV 73 L MCH 23 L MCHC 31 L Lymph % (Auto) 8.3 L [place] % (Auto) 11.4 H Lymph # 0.7 L [place] # 0.9 H Seg Neutrophils % 80.1 H PT INR APTT Activated Clotting Time Heparin Anti-Xa Level POC ABG pH POC ABG pCO2 POC ABG pO2 121 H Potassium Carbon Dioxide BUN 21 H Creatinine Glucose 183 H POC Glucose Calcium 7.2 L D Total Creatine Kinase 4153 H CK-MB (CK-2) 136.2 H CK-MB (CK-2) Rel Index Troponin T 5.810 H* D 01/11/19 01/11/19 01/11/19 06:08 11:52 17:46 WBC RBC Hgb Hct MCV MCH MCHC Lymph % (Auto) [place] % (Auto) Lymph # [place] # Seg Neutrophils % PT INR APTT Activated Clotting Time Heparin Anti-Xa Level POC ABG pH POC ABG pCO2 POC ABG pO2 Potassium Carbon Dioxide BUN Creatinine Glucose POC Glucose 179 H 147 H 159 H Calcium Total Creatine Kinase CK-MB (CK-2) CK-MB (CK-2) Rel Index Troponin T 01/11/19 01/11/19 01/11/19 19:36 23:35 23:45 WBC RBC Hgb 8.7 L Hct 27.0 L MCV 73 L MCH 24 L MCHC Lymph % (Auto) [place] % (Auto) Lymph # [place] # Seg Neutrophils % PT INR APTT Activated Clotting Time Heparin Anti-Xa Level 0.21 L POC ABG pH POC ABG pCO2 POC ABG pO2 Potassium Carbon Dioxide BUN Creatinine Glucose POC Glucose 109 H Calcium Total Creatine Kinase CK-MB (CK-2) CK-MB (CK-2) Rel Index Troponin T 01/12/19 01/12/19 01/12/19 04:37 05:00 05:00 WBC RBC Hgb 8.7 L Hct 27.2 L MCV 73 L MCH 23 L MCHC Lymph % (Auto) [place] % (Auto) Lymph # [place] # Seg Neutrophils % PT INR APTT Activated Clotting Time Heparin Anti-Xa Level 0.21 L POC ABG pH 7.341 L POC ABG pCO2 32.0 L POC ABG pO2 128 H Potassium Carbon Dioxide BUN Creatinine Glucose POC Glucose Calcium Total Creatine Kinase CK-MB (CK-2) CK-MB (CK-2) Rel Index Troponin T 01/12/19 01/12/19 01/12/19 06:13 10:20 12:10 WBC RBC 3.56 L Hgb 8.2 L Hct 26.0 L MCV 73 L MCH 23 L MCHC Lymph % (Auto) [place] % (Auto) Lymph # [place] # Seg Neutrophils % PT INR APTT Activated Clotting Time Heparin Anti-Xa Level POC ABG pH POC ABG pCO2 POC ABG pO2 Potassium Carbon Dioxide BUN Creatinine Glucose POC Glucose 159 H 159 H Calcium Total Creatine Kinase CK-MB (CK-2) CK-MB (CK-2) Rel Index Troponin T 01/12/19 01/13/19 01/13/19 17:57 00:13 05:19 WBC RBC Hgb Hct MCV MCH MCHC Lymph % (Auto) [place] % (Auto) Lymph # [place] # Seg Neutrophils % PT INR APTT Activated Clotting Time Heparin Anti-Xa Level POC ABG pH POC ABG pCO2 POC ABG pO2 Potassium Carbon Dioxide BUN Creatinine Glucose POC Glucose 194 H 162 H 166 H Calcium Total Creatine Kinase CK-MB (CK-2) CK-MB (CK-2) Rel Index Troponin T 01/13/19 01/13/19 06:39 06:39 WBC RBC Hgb 8.8 L Hct 27.1 L MCV 73 L MCH 24 L MCHC Lymph % (Auto) 8.6 L [place] % (Auto) 10.4 H Lymph # 0.7 L [place] # 0.9 H Seg Neutrophils % 80.5 H PT INR APTT Activated Clotting Time Heparin Anti-Xa Level POC ABG pH POC ABG pCO2 POC ABG pO2 Potassium 3.5 L D Carbon Dioxide 21 L BUN 7 L Creatinine 0.6 L Glucose 185 H POC Glucose Calcium 7.5 L Total Creatine Kinase CK-MB (CK-2) CK-MB (CK-2) Rel Index Troponin T
--- NOTE | 2019-01-13 09:26 | Progress Note ---
Assessment and Plan Acute inferior ST elevation [place] s/p PCI of circumflex Status post cardiac arrest in the ER Cardiogenic shock s/p IABG Fever Diabetes mellitus Bloody drainage from NG tube: Now resolved. Echocardiogram reports a normal systolic function, ejection fraction 50-55%. Recommend: Continue medical therapy for coronary artery disease including DAPT with Brilinta and aspirin. Subjective Date of service: 01/13/19 Principal diagnosis: chest pain, STEMI, respiratory failure Interval history: Patient has no complaints. He denies chest pain and shortness of breath. No distress noted. Objective Vital Signs Temp Pulse Pulse Resp BP Pulse Ox 01/13/19 09:07 98 01/13/19 07:32 100.0 F H 01/13/19 06:20 94 H 23 129/88 98 01/13/19 06:15 99 01/13/19 06:10 98 H 21 129/88 98 01/13/19 06:00 94 H 22 129/88 98 01/13/19 05:50 96 H 20 126/86 97 01/13/19 05:40 103 H 19 126/86 96 01/13/19 05:30 97 H 15 126/86 97 01/13/19 05:25 98.8 F 01/13/19 05:20 100 H 13 126/86 98 01/13/19 05:10 104 H 16 126/86 96 01/13/19 05:00 97 H 19 126/86 97 01/13/19 04:50 102 H 21 129/85 97 01/13/19 04:40 105 H 15 129/85 97 01/13/19 04:30 104 H 23 129/85 96 01/13/19 04:20 98 H 29 H 129/85 97 01/13/19 04:10 91 H 25 H 129/85 98 01/13/19 04:00 98 H 25 H 129/85 96 01/13/19 03:50 92 H 20 126/79 99 01/13/19 03:40 100 F H 96 H 29 H 126/79 98 01/13/19 03:35 96 H 18 99 01/13/19 03:30 96 H 17 126/79 99 01/13/19 03:20 91 H 15 126/79 98 01/13/19 03:10 102 H 25 H 126/79 98 01/13/19 03:00 99 H 17 126/79 01/13/19 02:50 100 H 29 H 119/79 97 01/13/19 02:40 103 H 20 119/79 96 01/13/19 02:30 95 H 27 H 119/79 97 01/13/19 02:25 96 H 18 99 01/13/19 02:20 100 H 18 119/79 97 01/13/19 02:10 107 H 14 119/79 97 01/13/19 02:00 97 H 22 119/79 97 01/13/19 01:50 99 H 28 H 122/85 98 01/13/19 01:40 97 H 30 H 122/85 98 01/13/19 01:30 97 H 26 H 122/85 97 01/13/19 01:20 104 H 22 122/85 96 01/13/19 01:10 94 H 22 122/85 98 01/13/19 01:00 99 H 23 122/85 98 01/13/19 00:50 94 H 26 H 123/79 98 01/13/19 00:40 102 H 23 123/79 98 01/13/19 00:30 97 H 18 139/97 99 01/13/19 00:20 92 H 30 H 139/97 98 01/13/19 00:10 106 H 18 139/97 98 01/13/19 00:00 95 H 22 123/79 98 01/12/19 23:50 101 H 23 139/97 97 01/12/19 23:40 96 H 22 139/97 98 01/12/19 23:38 100.1 F H 01/12/19 23:30 96 H 28 H 139/97 97 01/12/19 23:22 94 H 25 H 139/97 99 01/12/19 23:20 94 H 23 139/97 97 01/12/19 23:10 100 H 22 139/97 96 01/12/19 23:00 97 H 23 139/97 99 01/12/19 22:50 94 H 26 H 116/79 98 01/12/19 22:40 95 H 27 H 116/79 97 01/12/19 22:30 94 H 12 116/79 99 01/12/19 22:20 96 H 21 116/79 98 01/12/19 22:10 97 H 21 116/79 98 01/12/19 22:00 99 H 12 116/79 97 01/12/19 21:50 94 H 15 111/74 98 01/12/19 21:40 101 H 27 H 111/74 96 01/12/19 21:30 100 H 19 113/78 98 01/12/19 21:20 100 H 26 H 113/78 99 01/12/19 21:10 101 H 30 H 113/78 99 01/12/19 21:00 104 H 20 111/74 01/12/19 20:50 102 H 22 113/78 100 01/12/19 20:40 99 H 26 H 113/78 99 01/12/19 20:30 99 H 17 113/78 100 01/12/19 20:20 99 H 21 113/78 100 01/12/19 20:17 100 01/12/19 20:10 100 H 22 113/78 100 01/12/19 20:00 100 F H 105 H 13 113/78 99 01/12/19 19:50 94 H 22 119/76 100 01/12/19 19:40 107 H 21 119/76 100 01/12/19 19:30 102 H 22 119/76 01/12/19 19:20 104 H 24 124/79 100 01/12/19 19:10 103 H 18 124/79 100 01/12/19 19:00 105 H 22 124/79 100 01/12/19 18:50 106 H 21 129/82 100 01/12/19 18:40 106 H 23 129/82 100 01/12/19 18:30 107 H 22 129/82 01/12/19 18:20 107 H 15 129/84 100 01/12/19 18:10 109 H 19 129/84 100 01/12/19 18:00 106 H 21 129/84 100 01/12/19 17:50 105 H 14 122/79 100 01/12/19 17:40 106 H 14 122/79 100 01/12/19 17:30 104 H 21 122/79 01/12/19 17:20 105 H 20 135/86 100 01/12/19 17:10 104 H 21 135/86 100 01/12/19 17:00 105 H 18 135/86 01/12/19 16:50 106 H 14 132/89 100 01/12/19 16:40 109 H 15 132/89 100 01/12/19 16:30 105 H 15 132/89 100 01/12/19 16:20 106 H 19 129/86 100 01/12/19 16:10 102 H 22 129/86 100 01/12/19 16:00 102 H 22 129/86 100 01/12/19 15:50 105 H 21 127/81 100 01/12/19 15:40 104 H 19 127/81 100 01/12/19 15:30 100 H 23 127/81 98 01/12/19 15:20 103 H 22 139/89 100 01/12/19 15:10 103 H 18 139/89 100 01/12/19 15:00 99 H 20 139/89 100 01/12/19 14:50 97 H 22 129/85 100 01/12/19 14:40 108 H 20 129/85 100 01/12/19 14:30 99 H 23 129/85 100 01/12/19 14:20 98 H 23 151/94 100 01/12/19 14:10 101 H 22 151/94 100 01/12/19 14:00 99.8 F H 104 H 21 138/90 100 01/12/19 13:50 105 H 16 143/94 100 01/12/19 13:40 103 H 21 135/91 100 01/12/19 13:30 103 H 17 135/91 100 01/12/19 13:20 106 H 19 143/94 100 01/12/19 13:10 107 H 19 145/95 100 01/12/19 13:00 107 H 21 145/95 100 01/12/19 12:50 106 H 18 124/81 01/12/19 12:40 107 H 18 155/107 100 01/12/19 12:30 113 H 11 L 155/107 100 01/12/19 12:20 108 H 12 131/88 100 01/12/19 12:10 99 H 20 127/86 100 01/12/19 12:00 101 H 20 127/86 100 01/12/19 11:50 99 H 19 128/85 100 01/12/19 11:40 102 H 20 131/88 100 01/12/19 11:30 102 H 11 L 131/88 100 01/12/19 11:20 103 H 20 133/91 100 01/12/19 11:10 105 H 19 130/82 100 01/12/19 11:00 107 H 17 130/82 100 01/12/19 10:56 100 01/12/19 10:50 112 H 20 155/107 100 01/12/19 10:40 109 H 14 130/83 99 01/12/19 10:30 97 H 16 130/83 100 01/12/19 10:20 100 H 16 130/85 100 01/12/19 10:10 100 H 17 136/96 100 01/12/19 10:00 105 H 97 H 16 136/96 100 01/12/19 09:28 100 H 140/69 100 01/12/19 09:24 102 H 140/69 100 - Physical Examination General: No Apparent Distress HEENT: Positive: PERRL Neck: Positive: neck supple Cardiac: Positive: Reg Rate and Rhythm Lungs: Positive: Decreased Breath Sounds Neuro: Positive: Grossly Intact Incision: Cardiac Cath Site (right groin) Extremities: Absent: edema - Labs and Meds CBC 01/12/19 01/13/19 Range/Units 10:20 06:39 WBC 8.5 8.8 (4.5-11.0) K/mm3 RBC 3.56 L 3.74 (3.65-5.03) M/mm3 Hgb 8.2 L 8.8 L (11.8-15.2) gm/dl Hct 26.0 L 27.1 L (35.5-45.6) % Plt Count 151 179 (140-440) K/mm3 Lymph # 0.7 L (1.2-5.4) K/mm3 [place] # 0.9 H (0.0-0.8) K/mm3 Eos # 0.0 (0.0-0.4) K/mm3 Baso # 0.0 (0.0-0.1) K/mm3 Comprehensive Metabolic Panel 01/13/19 Range/Units 06:39 Sodium 139 (137-145) mmol/L Potassium 3.5 L D (3.6-5.0) mmol/L Chloride 105.0 (98-107) mmol/L Carbon Dioxide 21 L (22-30) mmol/L BUN 7 L (9-20) mg/dL Creatinine 0.6 L (0.8-1.5) mg/dL Glucose 185 H (75-100) mg/dL Calcium 7.5 L (8.4-10.2) mg/dL
[2019-01-13] MEDS: BRILINTA PO SCH ×2 (09:49→21:33)
[2019-01-13] MEDS: BABY ASPIRIN PO SCH (09:50)
[2019-01-13] MEDS: PROTONIX PO SCH (09:58)
[2019-01-13 10:16] LABS: Hematocrit 28.3 % (35.5-45.6); Hemoglobin 8.9 gm/dl (11.8-15.2); Mean Corpuscular HGB Conc 32 % (32-34); Mean Corpuscular Volume 74 fl (84-94); Red Blood Count 3.81 M/mm3 (3.65-5.03); Red Cell Distribution Width 14.2 % (13.2-15.2)
[2019-01-13 11:18] LABS: Platelet Count 177 K/mm3 (140-440)
--- NOTE | 2019-01-13 14:31 | Progress Note ---
Assessment and Plan Assessment and plan: STEMI (ST elevation myocardial infarction): Patient presents with acute myocardial infarction status post PCI had 100% stenosis of circumflex. Hospital course complicated by cardiac arrest respiratory failure after cold blue. Patient was intubated. Hospital course also complicated by blood loss anemia current H&H is stable. Patient is on heparin drip Cardiology is following. Echocardiogram reports a normal systolic function, ejection fraction 50-55%. Continue DAPT with Brilinta and aspirin. Cardiogenic shock s/p IABG Acute respiratory failure - Resolved, patient extubated Diabetes patient blood glucose stable continue with sliding-scale insulin. Acute renal failure - Resolved with IV fluids History Interval history: no new issues Hospitalist Physical - Constitutional Vitals: Temp Pulse Resp BP Pulse Ox 100.0 F H 94 H 19 120/88 99 01/13/19 11:39 01/13/19 11:10 01/13/19 11:10 01/13/19 11:10 01/13/19 11:10 General appearance: Present: no acute distress, well-nourished - EENT Eyes: Present: PERRL, EOM intact ENT: hearing intact, clear oral mucosa, dentition normal - Neck Neck: Present: supple, normal ROM - Respiratory Respiratory effort: normal Respiratory: bilateral: CTA - Cardiovascular Rhythm: regular Heart Sounds: Present: S1 & S2. Absent: gallop, rub - Extremities Extremities: no ischemia, No edema, Full ROM - Abdominal General gastrointestinal: soft, non-tender, non-distended, normal bowel sounds - Integumentary Integumentary: Present: clear, warm, dry - Neurologic Neurologic: CNII-XII intact, moves all extremities Results - Labs CBC & Chem 7: 01/13/19 09:53 01/13/19 06:39 Labs: Laboratory Last Values WBC 9.4 K/mm3 (4.5-11.0) 01/13/19 09:53 RBC 3.81 M/mm3 (3.65-5.03) 01/13/19 09:53 Hgb 8.9 gm/dl (11.8-15.2) L 01/13/19 09:53 Hct 28.3 % (35.5-45.6) L 01/13/19 09:53 MCV 74 fl (84-94) L 01/13/19 09:53 MCH 24 pg (28-32) L 01/13/19 09:53 MCHC 32 % (32-34) 01/13/19 09:53 RDW 14.2 % (13.2-15.2) 01/13/19 09:53 Plt Count 177 K/mm3 (140-440) 01/13/19 09:53 Lymph % (Auto) 8.6 % (13.4-35.0) L 01/13/19 06:39 [place] % (Auto) 10.4 % (0.0-7.3) H 01/13/19 06:39 Eos % (Auto) 0.3 % (0.0-4.3) 01/13/19 06:39 Baso % (Auto) 0.2 % (0.0-1.8) 01/13/19 06:39 Lymph # 0.7 K/mm3 (1.2-5.4) L 01/13/19 06:39 [place] # 0.9 K/mm3 (0.0-0.8) H 01/13/19 06:39 Eos # 0.0 K/mm3 (0.0-0.4) 01/13/19 06:39 Baso # 0.0 K/mm3 (0.0-0.1) 01/13/19 06:39 Seg Neutrophils % 80.5 % (40.0-70.0) H 01/13/19 06:39 Seg Neutrophils # 7.0 K/mm3 (1.8-7.7) 01/13/19 06:39 PT 15.8 Sec. (12.2-14.9) H 01/10/19 07:50 INR 1.18 (0.87-1.13) H 01/10/19 07:50 APTT 129.2 Sec. (24.2-36.6) H* 01/10/19 07:50 Activated Clotting Time 263 (74-137) H 01/10/19 05:09 Heparin Anti-Xa Level 0.21 U.I./ml (0.3-0.7) L 01/12/19 05:00 POC ABG pH 7.341 (7.35-7.45) L 01/12/19 04:37 POC ABG pCO2 32.0 (35-45) L 01/12/19 04:37 POC ABG pO2 128 (80-105) H 01/12/19 04:37 POC ABG HCO3 17.3 01/12/19 04:37 POC ABG Total CO2 18 01/12/19 04:37 POC ABG O2 Sat 99 01/12/19 04:37 POC ABG Base Excess -8 01/12/19 04:37 FiO2 30 % 01/12/19 04:37 Sodium 139 mmol/L (137-145) 01/13/19 06:39 Potassium 3.5 mmol/L (3.6-5.0) L D 01/13/19 06:39 Chloride 105.0 mmol/L (98-107) 01/13/19 06:39 Carbon Dioxide 21 mmol/L (22-30) L 01/13/19 06:39 Anion Gap 17 mmol/L 01/13/19 06:39 BUN 7 mg/dL (9-20) L 01/13/19 06:39 Creatinine 0.6 mg/dL (0.8-1.5) L 01/13/19 06:39 Estimated GFR > 60 ml/min 01/13/19 06:39 BUN/Creatinine Ratio 12 % 01/13/19 06:39 Glucose 185 mg/dL (75-100) H 01/13/19 06:39 POC Glucose 197 (70-105) H 01/13/19 11:08 Calcium 7.5 mg/dL (8.4-10.2) L 01/13/19 06:39 Total Creatine Kinase 4153 units/L (55-170) H 01/11/19 04:29 CK-MB (CK-2) 136.2 ng/mL (0.0-4.0) H 01/11/19 04:29 CK-MB (CK-2) Rel Index 3.2 (0-4) 01/11/19 04:29 Troponin T 5.810 ng/mL (0.00-0.029) H* D 01/11/19 04:29 Triglycerides 89 mg/dL (2-149) 01/10/19 07:50 Cholesterol 115 mg/dL (50-199) 01/10/19 07:50 LDL Cholesterol Direct 70 mg/dL (50-130) 01/10/19 07:50 HDL Cholesterol 45 mg/dL (40-59) 01/10/19 07:50 Cholesterol/HDL Ratio 2.55 % 01/10/19 07:50 Blood Type A POSITIVE 01/10/19 03:46 Antibody Screen Negative 01/10/19 03:46
[2019-01-14] MEDS: HumaLOG SUB-Q SCH ×5 (00:38→17:08)
[2019-01-14] MEDS: LOPRESSOR PO SCH ×2 (09:44→21:17)
[2019-01-14] MEDS: BRILINTA PO SCH ×2 (09:45→21:16)
[2019-01-14] MEDS: BABY ASPIRIN PO SCH (09:45)
[2019-01-14] MEDS: PROTONIX PO SCH (09:45)
--- NOTE | 2019-01-14 10:57 | Progress Note ---
Assessment and Plan Acute inferior ST elevation DE s/p PCI of circumflex Status post cardiac arrest in the ER Cardiogenic shock s/p IABG Fever Diabetes mellitus Bloody drainage from NG tube: Now resolved. Echocardiogram reports a normal systolic function, ejection fraction 50-55%. Recommend: Continue medical therapy for coronary artery disease including DAPT with Brilinta and aspirin. Subjective Date of service: 01/14/19 Principal diagnosis: chest pain, STEMI, respiratory failure Interval history: Patient unable to get out of bed, states he uses a walker for mobility. Awaits physical therapy. He denies chest pain and shortness of breath. Objective Vital Signs Temp Pulse Resp BP Pulse Ox 01/14/19 09:44 98 H 149/90 01/14/19 08:22 98.2 F 98 H 20 149/90 98 01/14/19 06:00 88 01/14/19 03:31 98.0 F 97 H 18 147/97 96 01/14/19 00:19 98.0 F 103 H 18 143/93 95 01/13/19 19:28 98.0 F 97 H 18 136/88 96 01/13/19 18:32 98.7 F 20 01/13/19 18:30 98.7 F 99 H 20 133/93 96 01/13/19 18:10 99 H 21 136/88 97 01/13/19 18:00 96 H 19 136/88 100 01/13/19 17:50 89 21 136/89 99 01/13/19 17:40 91 H 20 136/89 98 01/13/19 17:30 92 H 23 136/89 99 01/13/19 17:20 90 22 136/89 98 01/13/19 17:10 96 H 11 L 136/89 99 01/13/19 17:00 102 H 16 136/89 98 01/13/19 16:50 81 11 L 135/90 99 01/13/19 16:40 84 23 135/90 99 01/13/19 16:30 88 22 135/90 100 01/13/19 16:20 93 H 21 135/90 98 01/13/19 16:11 100.8 F H 01/13/19 16:10 86 30 H 135/90 98 01/13/19 16:00 86 21 135/90 98 01/13/19 15:50 97 H 18 121/88 98 01/13/19 15:40 95 H 24 121/88 98 01/13/19 15:38 99 H 15 121/88 99 01/13/19 14:20 92 H 12 124/91 98 01/13/19 14:10 94 H 14 124/91 98 01/13/19 14:00 94 H 15 124/91 98 01/13/19 13:50 88 25 H 129/88 99 01/13/19 13:40 91 H 22 129/88 100 01/13/19 13:30 93 H 21 129/88 100 01/13/19 13:20 98 H 13 129/88 99 01/13/19 13:10 93 H 20 129/88 99 01/13/19 13:00 100 H 16 129/88 99 01/13/19 12:50 100 H 21 115/92 98 01/13/19 12:40 95 H 16 115/92 99 01/13/19 12:30 92 H 20 115/92 100 01/13/19 12:20 94 H 19 115/92 100 01/13/19 12:10 93 H 22 115/92 98 01/13/19 12:00 103 H 19 115/92 99 01/13/19 11:50 90 15 120/88 98 01/13/19 11:40 89 27 H 120/88 99 01/13/19 11:39 100.0 F H 01/13/19 11:30 96 H 22 120/88 99 01/13/19 11:20 90 22 120/88 99 01/13/19 11:10 94 H 19 120/88 99 01/13/19 11:00 98 H 20 120/88 99 - Physical Examination General: No Apparent Distress HEENT: Positive: PERRL Neck: Positive: neck supple Cardiac: Positive: Reg Rate and Rhythm Lungs: Positive: Decreased Breath Sounds Neuro: Positive: Grossly Intact, Weakness Incision: Cardiac Cath Site (right groin) Extremities: Absent: edema - Labs and Meds CBC 01/13/19 Range/Units 09:53 Plt Count 177 (140-440) K/mm3
--- NOTE | 2019-01-14 11:10 | Progress Note ---
Assessment and Plan Assessment and plan: STEMI (ST elevation myocardial infarction): Patient presents with acute myocardial infarction status post PCI had 100% stenosis of circumflex. Hospital course complicated by cardiac arrest respiratory failure after cold blue. Patient was intubated. Hospital course also complicated by blood loss anemia current H&H is stable. Patient is on heparin drip Cardiology is following. Echocardiogram reports a normal systolic function, ejection fraction 50-55%. Continue DAPT with Brilinta and aspirin. Cardiogenic shock s/p IABG Acute respiratory failure - Resolved, patient extubated Diabetes patient blood glucose stable continue with sliding-scale insulin. Acute renal failure - Resolved with IV fluids Deconditioned. PT evaluation pending. Disposition. Anticipate discharge in a.m. History Interval history: no new issues Hospitalist Physical - Constitutional Vitals: Temp Pulse Resp BP Pulse Ox 98.2 F 88 20 138/70 100 01/14/19 11:05 01/14/19 11:05 01/14/19 11:05 01/14/19 11:05 01/14/19 11:05 General appearance: Present: no acute distress, well-nourished - EENT Eyes: Present: PERRL, EOM intact ENT: hearing intact, clear oral mucosa, dentition normal - Neck Neck: Present: supple, normal ROM - Respiratory Respiratory effort: normal Respiratory: bilateral: CTA - Cardiovascular Rhythm: regular Heart Sounds: Present: S1 & S2. Absent: gallop, rub - Extremities Extremities: no ischemia, No edema, Full ROM - Abdominal General gastrointestinal: soft, non-tender, non-distended, normal bowel sounds - Integumentary Integumentary: Present: clear, warm, dry - Neurologic Neurologic: CNII-XII intact, moves all extremities Results - Labs CBC & Chem 7: 01/13/19 09:53 01/13/19 06:39 Labs: Laboratory Last Values WBC 9.4 K/mm3 (4.5-11.0) 01/13/19 09:53 RBC 3.81 M/mm3 (3.65-5.03) 01/13/19 09:53 Hgb 8.9 gm/dl (11.8-15.2) L 01/13/19 09:53 Hct 28.3 % (35.5-45.6) L 01/13/19 09:53 MCV 74 fl (84-94) L 01/13/19 09:53 MCH 24 pg (28-32) L 01/13/19 09:53 MCHC 32 % (32-34) 01/13/19 09:53 RDW 14.2 % (13.2-15.2) 01/13/19 09:53 Plt Count 177 K/mm3 (140-440) 01/13/19 09:53 Lymph % (Auto) 8.6 % (13.4-35.0) L 01/13/19 06:39 [place] % (Auto) 10.4 % (0.0-7.3) H 01/13/19 06:39 Eos % (Auto) 0.3 % (0.0-4.3) 01/13/19 06:39 Baso % (Auto) 0.2 % (0.0-1.8) 01/13/19 06:39 Lymph # 0.7 K/mm3 (1.2-5.4) L 01/13/19 06:39 [place] # 0.9 K/mm3 (0.0-0.8) H 01/13/19 06:39 Eos # 0.0 K/mm3 (0.0-0.4) 01/13/19 06:39 Baso # 0.0 K/mm3 (0.0-0.1) 01/13/19 06:39 Seg Neutrophils % 80.5 % (40.0-70.0) H 01/13/19 06:39 Seg Neutrophils # 7.0 K/mm3 (1.8-7.7) 01/13/19 06:39 PT 15.8 Sec. (12.2-14.9) H 01/10/19 07:50 INR 1.18 (0.87-1.13) H 01/10/19 07:50 APTT 129.2 Sec. (24.2-36.6) H* 01/10/19 07:50 Activated Clotting Time 263 (74-137) H 01/10/19 05:09 Heparin Anti-Xa Level 0.21 U.I./ml (0.3-0.7) L 01/12/19 05:00 POC ABG pH 7.341 (7.35-7.45) L 01/12/19 04:37 POC ABG pCO2 32.0 (35-45) L 01/12/19 04:37 POC ABG pO2 128 (80-105) H 01/12/19 04:37 POC ABG HCO3 17.3 01/12/19 04:37 POC ABG Total CO2 18 01/12/19 04:37 POC ABG O2 Sat 99 01/12/19 04:37 POC ABG Base Excess -8 01/12/19 04:37 FiO2 30 % 01/12/19 04:37 Sodium 139 mmol/L (137-145) 01/13/19 06:39 Potassium 3.5 mmol/L (3.6-5.0) L D 01/13/19 06:39 Chloride 105.0 mmol/L (98-107) 01/13/19 06:39 Carbon Dioxide 21 mmol/L (22-30) L 01/13/19 06:39 Anion Gap 17 mmol/L 01/13/19 06:39 BUN 7 mg/dL (9-20) L 01/13/19 06:39 Creatinine 0.6 mg/dL (0.8-1.5) L 01/13/19 06:39 Estimated GFR > 60 ml/min 01/13/19 06:39 BUN/Creatinine Ratio 12 % 01/13/19 06:39 Glucose 185 mg/dL (75-100) H 01/13/19 06:39 POC Glucose 164 (70-105) H 01/14/19 07:34 Calcium 7.5 mg/dL (8.4-10.2) L 01/13/19 06:39 Total Creatine Kinase 4153 units/L (55-170) H 01/11/19 04:29 CK-MB (CK-2) 136.2 ng/mL (0.0-4.0) H 01/11/19 04:29 CK-MB (CK-2) Rel Index 3.2 (0-4) 01/11/19 04:29 Troponin T 5.810 ng/mL (0.00-0.029) H* D 01/11/19 04:29 Triglycerides 89 mg/dL (2-149) 01/10/19 07:50 Cholesterol 115 mg/dL (50-199) 01/10/19 07:50 LDL Cholesterol Direct 70 mg/dL (50-130) 01/10/19 07:50 HDL Cholesterol 45 mg/dL (40-59) 01/10/19 07:50 Cholesterol/HDL Ratio 2.55 % 01/10/19 07:50 Blood Type A POSITIVE 01/10/19 03:46 Antibody Screen Negative 01/10/19 03:46
--- NOTE | 2019-01-14 11:24 | Progress Note ---
Assessment and Plan Status post cardiac arrest STEMI status- post PCI and aortic balloon placement Acute respiratory failure. Wean off successfully and extubated. Recommendations Continue oxygen support if needed to maintain oximetry over 90%, if needed. Monitor for fever Continue post PCI recommendations, see cardiology note DVT prophylaxis Ambulate as tolerated Discussed with the patient detail. All questions answered. Will sign off. Feel free to reconsult if necessary Subjective Date of service: 01/14/19 Principal diagnosis: chest pain, STEMI, respiratory failure Interval history: No chest complaints. Denies fever Objective Vital Signs - 12hr 01/14/19 01/14/19 01/14/19 00:19 03:31 06:00 Temperature 98.0 F 98.0 F Pulse Rate 103 H 97 H 88 Respiratory 18 18 Rate Blood Pressure 143/93 147/97 O2 Sat by Pulse 95 96 Oximetry 01/14/19 01/14/19 01/14/19 08:22 09:44 11:05 Temperature 98.2 F 98.2 F Pulse Rate 98 H 98 H 88 Respiratory 20 20 Rate Blood Pressure 149/90 149/90 138/70 O2 Sat by Pulse 98 100 Oximetry Constitutional: no acute distress, alert Eyes: non-icteric Neck: supple, no lymphadenopathy, no JVD Effort: normal Ascultation: Bilateral: clear Percussion: Bilateral: not dull Cardiovascular: regular rate and rhythm Gastrointestinal: normoactive bowel sounds, soft Integumentary: normal Extremities: no cyanosis, no edema, pink and warm Neurologic: normal mental status, non-focal exam, pupils equal and round, CN II- XII normal Psychiatric: mood appropriate, affect normal CBC and BMP: 01/13/19 09:53 01/13/19 06:39 ABG, PT/INR, D-dimer: ABG POC ABG pH 7.341 (7.35-7.45) L 01/12/19 04:37 POC ABG pCO2 32.0 (35-45) L 01/12/19 04:37 POC ABG pO2 128 (80-105) H 01/12/19 04:37 POC ABG HCO3 17.3 01/12/19 04:37 POC ABG Total CO2 18 01/12/19 04:37 POC ABG O2 Sat 99 01/12/19 04:37 PT/INR, D-dimer PT 15.8 Sec. (12.2-14.9) H 01/10/19 07:50 INR 1.18 (0.87-1.13) H 01/10/19 07:50 Abnormal lab findings: Abnormal Labs 01/10/19 01/10/19 01/10/19 03:46 03:46 03:46 WBC RBC 5.52 H Hgb Hct MCV 73 L MCH 23 L MCHC Lymph % (Auto) [place] % (Auto) 12.7 H Lymph # [place] # Seg Neutrophils % PT INR APTT 69.0 H* Activated Clotting Time Heparin Anti-Xa Level POC ABG pH POC ABG pCO2 POC ABG pO2 Potassium 3.5 L Carbon Dioxide 21 L BUN Creatinine 0.7 L Glucose 191 H POC Glucose Calcium Total Creatine Kinase 215 H CK-MB (CK-2) 4.2 H CK-MB (CK-2) Rel Index Troponin T 01/10/19 01/10/19 01/10/19 04:15 04:51 05:09 WBC RBC Hgb Hct MCV MCH MCHC Lymph % (Auto) [place] % (Auto) Lymph # [place] # Seg Neutrophils % PT INR APTT Activated Clotting Time 423 H 263 H Heparin Anti-Xa Level POC ABG pH POC ABG pCO2 POC ABG pO2 Potassium Carbon Dioxide BUN Creatinine Glucose POC Glucose 189 H Calcium Total Creatine Kinase CK-MB (CK-2) CK-MB (CK-2) Rel Index Troponin T 01/10/19 01/10/19 01/10/19 07:50 07:50 08:19 WBC RBC Hgb Hct MCV MCH MCHC Lymph % (Auto) [place] % (Auto) Lymph # [place] # Seg Neutrophils % PT 15.8 H INR 1.18 H APTT 129.2 H* Activated Clotting Time Heparin Anti-Xa Level POC ABG pH 7.265 L POC ABG pCO2 POC ABG pO2 287 H Potassium Carbon Dioxide BUN Creatinine Glucose POC Glucose Calcium Total Creatine Kinase 8450 H CK-MB (CK-2) 398.1 H CK-MB (CK-2) Rel Index 4.7 H Troponin T 10.730 H* D 01/10/19 01/10/19 01/10/19 10:46 12:37 15:15 WBC RBC Hgb 11.4 L Hct MCV MCH MCHC Lymph % (Auto) [place] % (Auto) Lymph # [place] # Seg Neutrophils % PT INR APTT Activated Clotting Time Heparin Anti-Xa Level POC ABG pH POC ABG pCO2 POC ABG pO2 Potassium Carbon Dioxide BUN Creatinine Glucose POC Glucose 195 H Calcium Total Creatine Kinase 7146 H CK-MB (CK-2) 339.3 H CK-MB (CK-2) Rel Index 4.7 H Troponin T 10.800 H* 01/10/19 01/10/19 01/10/19 18:03 21:56 23:50 WBC 11.3 H RBC Hgb 11.3 L Hct MCV 72 L MCH 23 L MCHC Lymph % (Auto) [place] % (Auto) Lymph # [place] # Seg Neutrophils % PT INR APTT Activated Clotting Time Heparin Anti-Xa Level POC ABG pH POC ABG pCO2 POC ABG pO2 Potassium Carbon Dioxide BUN Creatinine Glucose POC Glucose 185 H 186 H Calcium Total Creatine Kinase CK-MB (CK-2) CK-MB (CK-2) Rel Index Troponin T 01/11/19 01/11/19 01/11/19 04:29 04:29 05:47 WBC RBC Hgb 10.2 L Hct 32.5 L MCV 73 L MCH 23 L MCHC 31 L Lymph % (Auto) 8.3 L [place] % (Auto) 11.4 H Lymph # 0.7 L [place] # 0.9 H Seg Neutrophils % 80.1 H PT INR APTT Activated Clotting Time Heparin Anti-Xa Level POC ABG pH POC ABG pCO2 POC ABG pO2 121 H Potassium Carbon Dioxide BUN 21 H Creatinine Glucose 183 H POC Glucose Calcium 7.2 L D Total Creatine Kinase 4153 H CK-MB (CK-2) 136.2 H CK-MB (CK-2) Rel Index Troponin T 5.810 H* D 01/11/19 01/11/19 01/11/19 06:08 11:52 17:46 WBC RBC Hgb Hct MCV MCH MCHC Lymph % (Auto) [place] % (Auto) Lymph # [place] # Seg Neutrophils % PT INR APTT Activated Clotting Time Heparin Anti-Xa Level POC ABG pH POC ABG pCO2 POC ABG pO2 Potassium Carbon Dioxide BUN Creatinine Glucose POC Glucose 179 H 147 H 159 H Calcium Total Creatine Kinase CK-MB (CK-2) CK-MB (CK-2) Rel Index Troponin T 01/11/19 01/11/19 01/11/19 19:36 23:35 23:45 WBC RBC Hgb 8.7 L Hct 27.0 L MCV 73 L MCH 24 L MCHC Lymph % (Auto) [place] % (Auto) Lymph # [place] # Seg Neutrophils % PT INR APTT Activated Clotting Time Heparin Anti-Xa Level 0.21 L POC ABG pH POC ABG pCO2 POC ABG pO2 Potassium Carbon Dioxide BUN Creatinine Glucose POC Glucose 109 H Calcium Total Creatine Kinase CK-MB (CK-2) CK-MB (CK-2) Rel Index Troponin T 01/12/19 01/12/19 01/12/19 04:37 05:00 05:00 WBC RBC Hgb 8.7 L Hct 27.2 L MCV 73 L MCH 23 L MCHC Lymph % (Auto) [place] % (Auto) Lymph # [place] # Seg Neutrophils % PT INR APTT Activated Clotting Time Heparin Anti-Xa Level 0.21 L POC ABG pH 7.341 L POC ABG pCO2 32.0 L POC ABG pO2 128 H Potassium Carbon Dioxide BUN Creatinine Glucose POC Glucose Calcium Total Creatine Kinase CK-MB (CK-2) CK-MB (CK-2) Rel Index Troponin T 01/12/19 01/12/19 01/12/19 06:13 10:20 12:10 WBC RBC 3.56 L Hgb 8.2 L Hct 26.0 L MCV 73 L MCH 23 L MCHC Lymph % (Auto) [place] % (Auto) Lymph # [place] # Seg Neutrophils % PT INR APTT Activated Clotting Time Heparin Anti-Xa Level POC ABG pH POC ABG pCO2 POC ABG pO2 Potassium Carbon Dioxide BUN Creatinine Glucose POC Glucose 159 H 159 H Calcium Total Creatine Kinase CK-MB (CK-2) CK-MB (CK-2) Rel Index Troponin T 01/12/19 01/13/19 01/13/19 17:57 00:13 05:19 WBC RBC Hgb Hct MCV MCH MCHC Lymph % (Auto) [place] % (Auto) Lymph # [place] # Seg Neutrophils % PT INR APTT Activated Clotting Time Heparin Anti-Xa Level POC ABG pH POC ABG pCO2 POC ABG pO2 Potassium Carbon Dioxide BUN Creatinine Glucose POC Glucose 194 H 162 H 166 H Calcium Total Creatine Kinase CK-MB (CK-2) CK-MB (CK-2) Rel Index Troponin T 01/13/19 01/13/19 01/13/19 06:39 06:39 09:53 WBC RBC Hgb 8.8 L 8.9 L Hct 27.1 L 28.3 L MCV 73 L 74 L MCH 24 L 24 L MCHC Lymph % (Auto) 8.6 L [place] % (Auto) 10.4 H Lymph # 0.7 L [place] # 0.9 H Seg Neutrophils % 80.5 H PT INR APTT Activated Clotting Time Heparin Anti-Xa Level POC ABG pH POC ABG pCO2 POC ABG pO2 Potassium 3.5 L D Carbon Dioxide 21 L BUN 7 L Creatinine 0.6 L Glucose 185 H POC Glucose Calcium 7.5 L Total Creatine Kinase CK-MB (CK-2) CK-MB (CK-2) Rel Index Troponin T 01/13/19 01/13/19 01/13/19 11:08 17:48 20:50 WBC RBC Hgb Hct MCV MCH MCHC Lymph % (Auto) [place] % (Auto) Lymph # [place] # Seg Neutrophils % PT INR APTT Activated Clotting Time Heparin Anti-Xa Level POC ABG pH POC ABG pCO2 POC ABG pO2 Potassium Carbon Dioxide BUN Creatinine Glucose POC Glucose 197 H 186 H 187 H Calcium Total Creatine Kinase CK-MB (CK-2) CK-MB (CK-2) Rel Index Troponin T 01/14/19 01/14/19 01/14/19 00:34 06:18 07:34 WBC RBC Hgb Hct MCV MCH MCHC Lymph % (Auto) [place] % (Auto) Lymph # [place] # Seg Neutrophils % PT INR APTT Activated Clotting Time Heparin Anti-Xa Level POC ABG pH POC ABG pCO2 POC ABG pO2 Potassium Carbon Dioxide BUN Creatinine Glucose POC Glucose 191 H 164 H 164 H Calcium Total Creatine Kinase CK-MB (CK-2) CK-MB (CK-2) Rel Index Troponin T
[2019-01-14] MEDS: HEPARIN SUB-Q SCH ×2 (14:32→21:17)
[2019-01-14] MEDS ORDERED: ZOFRAN IV PRN (22:35)
[2019-01-15 01:00] LABS: Hemoglobin 9.3 gm/dl (11.8-15.2)
[2019-01-15] MEDS: HumaLOG SUB-Q SCH ×2 (01:00→05:56)
[2019-01-15 01:08] LABS: Hematocrit 28.3 % (35.5-45.6); Mean Corpuscular HGB Conc 33 % (32-34); Mean Corpuscular Volume 72 fl (84-94); Platelet Count 245 K/mm3 (140-440); Red Blood Count 3.91 M/mm3 (3.65-5.03); Red Cell Distribution Width 13.9 % (13.2-15.2)
[2019-01-15 01:45] LABS: BUN/Creatinine Ratio 10; Blood Urea Nitrogen 8 mg/dL (9-20); Hemolysis Index 25
[2019-01-15] MEDS: HEPARIN SUB-Q SCH (05:34)
--- NOTE | 2019-01-15 08:16 | Discharge Summary ---
Providers - Providers Date of Admission: 01/10/19 05:20 Date of discharge: 01/15/19 Attending physician: ELAINE THEODORE 01/10/19 Consult to Cardiac Rehabilitation [CONS] Routine Reason For Exam: post pci 01/10/19 05:26 Consult to Physician [CONS] Urgent Comment: Consulting Provider: SHIVA MARCUS Physician Instructions: Reason For Exam: medical management 01/12/19 09:58 Physical Therapy Evaluation and Treat [CONS] Routine Comment: Reason For Exam: debility Primary care physician: [facility] ANDRE[facility] MD Hospitalization Reason for admission: cardiac arrest Condition: Stable Hospital course: This is a 48-year-old male who presented to the emergency room with status post cardiac arrest. Patient was admitted with diagnosis of STEMI (Acute inferior ST elevation [place]) subsequent cardiac arrest, acute hypoxemic respiratory failure requiring intubation. Patient was status post PCI of circumflex and then transitioned to ICU on a balloon pump secondary to cardiogenic shock. He was treated with aggrastat and heparin infusions. Patient later improved and was extubated. Intra-aortic balloon pump was discontinued. Patient was transferred to the floor. Echocardiogram reported a normal systolic function with EF of 50-55%. Cardiology and pulmonary saw the patient consultation. Patient was continued on medical therapy for the duration of the hospitalization for coronary artery disease including DAPT with Brilinta and aspirin. Physical therapy evaluated the patient and recommended home health PT. Dedicated discharge time 34 minutes. Disposition: DC-01 TO HOME OR SELFCARE Time spent for discharge: 34 - Discharge Diagnoses (1) Cardiogenic shock Status: Acute (2) Acute inferior myocardial infarction Status: Acute (3) Acute renal failure Status: Acute (4) Acute respiratory failure Status: Acute (5) Diabetes Status: Acute (6) STEMI (ST elevation myocardial infarction) Status: Acute Qualifiers: Involved coronary artery: unspecified coronary artery Qualified Code(s): I21.3 - ST elevation (STEMI) myocardial infarction of unspecified site Core Measure Documentation - Palliative Care Palliative Care/ Comfort Measures: Not Applicable - Core Measures Any of the following diagnoses?: acute NE - Acute NE Discharge Requirements Aspirin at discharge: Yes MAHAMED/ARB for LVSD if EF <40%: Not Applicable Beta laura at discharge: Yes Statin for LDL = or >100 mg/dl on DC: Yes Exam - Constitutional Vitals: Temp Pulse Resp BP Pulse Ox 98.7 F 89 12 129/84 100 03/07/19 04:17 01/15/19 04:17 01/15/19 04:17 01/15/19 04:17 01/15/19 04:17 General appearance: Present: no acute distress, well-nourished - EENT Eyes: Present: PERRL ENT: hearing intact, clear oral mucosa - Neck Neck: Present: supple, normal ROM - Respiratory Respiratory effort: normal Respiratory: bilateral: CTA - Cardiovascular Heart Sounds: Present: S1 & S2. Absent: rub, click - Extremities Extremities: pulses symmetrical, No edema Peripheral Pulses: within normal limits - Abdominal General gastrointestinal: Present: soft, non-tender, non-distended, normal bowel sounds Male genitourinary: Present: normal - Integumentary Integumentary: Present: clear, warm, dry - Musculoskeletal Musculoskeletal: gait normal, strength equal bilaterally - Psychiatric Psychiatric: appropriate mood/affect, intact judgment & insight - Neurologic Neurologic: CNII-XII intact, moves all extremities Plan Activity: advance as tolerated Weight Bearing Status: Weight Bear as Tolerated Diet: diabetic Special Instructions: physical therapy, home health RN [facility] - 3-5 Days ROGERIO STUART MD [Staff Physician] - 7 Days Prescriptions: Aspirin [Aspirin BABY CHEW TAB] 81 mg PO QDAY #30 tab.chew Ticagrelor [Brilinta] 90 mg PO BID #60 tablet metFORMIN [Glucophage] 300 mg PO QDAY #30 tablet ISOSORBIDE MONOnitrate [Imdur ER] 30 mg PO QDAY #30 tablet AtorvaSTATin [Lipitor] 80 mg PO QHS #30 tablet Metoprolol [Lopressor TAB] 25 mg PO BID #60 tablet Gabapentin [Neurontin] 600 mg PO BID #60 tablet amLODIPine [Norvasc] 10 mg PO DAILY #30 tablet Pantoprazole [Protonix TAB] 40 mg PO DAILY #30 tablet
[2019-01-15 08:26] VITALS: BP 120/86
--- NOTE | 2019-01-15 09:32 | Progress Note ---
Assessment and Plan Acute inferior ST elevation [place] s/p PCI of circumflex Status post cardiac arrest in the ER Cardiogenic shock s/p IABG Fever -resolved Diabetes mellitus Bloody drainage from NG tube: Now resolved. Anemia Echocardiogram reports a normal systolic function, ejection fraction 50-55%. Recommend: Continue medical therapy for coronary artery disease including DAPT with Brilinta and aspirin. Stable cardiac hatch for discharge. Patient will f/u with Dr Garcia January 19 at 2pm. Subjective Date of service: 01/15/19 Principal diagnosis: chest pain, STEMI, respiratory failure Interval history: Patient is ambulating with a walker. Patient denies chest pain and shortness of breath. Objective Vital Signs Temp Pulse Resp BP Pulse Ox 01/15/19 08:24 98.4 F 103 H 18 120/86 99 01/15/19 04:17 98.7 F 89 12 129/84 100 01/15/19 04:00 88 01/14/19 23:23 99.2 F 98 H 18 104/72 97 01/14/19 22:30 96 H 123/77 99 01/14/19 21:17 96 H 107/74 01/14/19 19:23 99.0 F 96 H 16 107/74 99 01/14/19 15:28 98.9 F 92 H 18 120/81 99 01/14/19 11:05 98.2 F 88 20 138/70 100 01/14/19 10:00 95 H 01/14/19 09:44 98 H 149/90 - Physical Examination General: No Apparent Distress HEENT: Positive: PERRL Neck: Positive: trachea midline Cardiac: Positive: Reg Rate and Rhythm Lungs: Positive: Decreased Breath Sounds Neuro: Positive: Grossly Intact, Weakness Incision: Cardiac Cath Site (right groin) Extremities: Absent: edema - Labs and Meds CBC 01/15/19 Range/Units 00:25 WBC 7.8 (4.5-11.0) K/mm3 RBC 3.91 (3.65-5.03) M/mm3 Hgb 9.3 L (11.8-15.2) gm/dl Hct 28.3 L (35.5-45.6) % Plt Count 245 (140-440) K/mm3 Comprehensive Metabolic Panel 01/15/19 Range/Units 00:25 Sodium 136 L (137-145) mmol/L Potassium 3.4 L (3.6-5.0) mmol/L Chloride 101.1 (98-107) mmol/L Carbon Dioxide 24 (22-30) mmol/L BUN 8 L (9-20) mg/dL Creatinine 0.8 (0.8-1.5) mg/dL Glucose 179 H (75-100) mg/dL Calcium 8.0 L (8.4-10.2) mg/dL
[2019-01-15] MEDS: LOPRESSOR PO SCH (09:50)
[2019-01-15] MEDS: PROTONIX PO SCH (09:50)
[2019-01-15] MEDS: BRILINTA PO SCH (09:50)
[2019-01-15] MEDS: BABY ASPIRIN PO SCH (09:50)
[2019-01-15] MEDS ORDERED: K-DUR PO SCH (10:00)
[2019-01-15] MEDS ORDERED: IMDUR PO SCH (10:00)
== END 2019-01-15 11:50 | disposition home health service (06) | DRG 270 ==
LOC: ED 03:32 → CC1 05:20 → 4A 01-13 18:47
PROVIDERS: ADMIT Internal Medicine Cardiovascular Disease; ATTEND Internal Medicine Cardiovascular Disease
PROC: 5A1945Z Respiratory Ventilation, 24-96 Consecutive Hours (ICD-10-PCS; principal; 2019-01-10)
PROC: 5A02210 Assistance with Cardiac Output using Balloon Pump, Continuous (ICD-10-PCS; 2019-01-10)
PROC: 0BH17EZ Insertion of Endotracheal Airway into Trachea, Via Natural or Artificial Opening (ICD-10-PCS; 2019-01-10)
PROC: 027034Z Dilation of Coronary Artery, One Artery with Drug-eluting Intraluminal Device, Percutaneous Approach (ICD-10-PCS; 2019-01-10)
PROC: 02C03ZZ Extirpation of Matter from Coronary Artery, One Artery, Percutaneous Approach (ICD-10-PCS; 2019-01-10)
PROC: 4A023N7 Measurement of Cardiac Sampling and Pressure, Left Heart, Percutaneous Approach (ICD-10-PCS; 2019-01-10)
PROC: B2111ZZ Fluoroscopy of Multiple Coronary Arteries using Low Osmolar Contrast (ICD-10-PCS; 2019-01-10)
PROC: B2151ZZ Fluoroscopy of Left Heart using Low Osmolar Contrast (ICD-10-PCS; 2019-01-10)
PROC: 4A033R1 Measurement of Arterial Saturation, Peripheral, Percutaneous Approach (ICD-10-PCS; 2019-01-11)
DX: I21.19 ST elevation (STEMI) myocardial infarction involving other coronary artery of inferior wall (principal); I46.9 Cardiac arrest, cause unspecified; J96.01 Acute respiratory failure with hypoxia; N17.9 Acute kidney failure, unspecified; E11.9 Type 2 diabetes mellitus without complications; D64.9 Anemia, unspecified; I25.10 Atherosclerotic heart disease of native coronary artery without angina pectoris; I25.82 Chronic total occlusion of coronary artery
CPT/HCPCS: 33967; 36415; 36600; 71045; 80048; 80061; 82550; 82553; 82803; 82962; 84484; 85014; 85018; 85025; 85027; 85049; 85347; 85520; 85610; 85730; 86850; 86900; 86901; 87070; 87205; 92941; 93005; 93010; 93306; 93458; 94002; 94003; 94760; 96374; 99291; G0378; A9270-GY; C1725; C1757; C1769; C1874; C1887; C1894; C9606; J0171; J0330; J0461; J0690; J1265; J1644; J1815; J1940; J2001; J2250; J2370; J2405; J3010; J3246; J7030; J7040; J7050; Q9967

== ENCOUNTER 2020-09-22 07:09 | Observation (INO) | payer MEDICARE ==
[2020-09-22] MEDS ORDERED: ASPIRIN EC 325 MG TAB PO ONE (08:01)
[2020-09-22 08:41] LABS: Basophils % (Auto) 0.5 % (0.0-1.8); Eosinophils # (Auto) 0.1 K/mm3 (0.0-0.4); Eosinophils % (Auto) 1.5 % (0.0-4.3); Hematocrit 42.7 % (35.5-45.6); Hemoglobin 13.4 gm/dl (11.8-15.2); Lymphocytes # (Auto) 1.1 K/mm3 (1.2-5.4); Mean Corpuscular HGB Conc 31 % (32-34); Mean Corpuscular Volume 75 fl (84-94); Monocytes # (Auto) 0.6 K/mm3 (0.0-0.8); Monocytes % (Auto) 13.3 % (0.0-7.3); Platelet Count 207 K/mm3 (140-440); Red Blood Count 5.74 M/mm3 (3.65-5.03); Red Cell Distribution Width 14.9 % (13.2-15.2)
[2020-09-22 08:46] LABS: BUN/Creatinine Ratio 11; Blood Urea Nitrogen 12 mg/dL (9-20); Calcium 9.2 mg/dL (8.4-10.2); Hemolysis Index 1
[2020-09-22 08:52] LABS: INR 1.05 (0.87-1.13)
[2020-09-22] MEDS ORDERED: SODIUM CHLORIDE 0.9% 500 ML 500 ML IV SCH (09:00)
[2020-09-22] MEDS ORDERED: TICAGRELOR 90 MG TAB ONE (09:24)
[2020-09-22] MEDS: fentaNYL 100 MCG/2 ML INJ ONE ×2 (09:57→10:31)
[2020-09-22] MEDS: MIDAZOLAM 2 MG/2 ML INJ ONE ×2 (09:57→10:31)
[2020-09-22] MEDS: HEPARIN/NS 5000 UNIT/500ML 1,000 ML IR ONE ×2 (09:58→10:29)
[2020-09-22] MEDS: LIDOCAINE (2%) 20 MG/1 ML VIAL 20 ML MDV INFILTRATI ONE ×2 (09:58→10:31)
[2020-09-22] MEDS: NITROGLYCERIN SYRINGE 3 ML ONE ×2 (09:59→10:33)
[2020-09-22] MEDS: SODIUM CHLORIDE 0.9% 500 ML 500 ML ONE ×2 (09:59→10:29)
[2020-09-22] MEDS: VERAPAMIL 5 MG/2 ML INJ ONE ×2 (10:00→10:33)
[2020-09-22] MEDS: HEPARIN 10,000 UNITS/10 ML VIAL ONE ×3 (10:00→10:41)
[2020-09-22] MEDS ORDERED: HEPARIN 10,000 UNITS/10 ML VIAL ONE (11:29)
[2020-09-22] MEDS ORDERED: traMADol 50 MG TAB PO PRN (11:41)
[2020-09-22] MEDS ORDERED: HYDROcodone/ACETAMINOPHEN 5-325 MG TAB PO PRN (11:41)
[2020-09-22] MEDS ORDERED: ZOLPIDEM 5 MG TAB PO PRN (11:41)
[2020-09-22] MEDS ORDERED: ONDANSETRON 4 MG/2 ML INJ IV PRN (11:41)
[2020-09-22] MEDS ORDERED: ACETAMINOPHEN 325 MG TAB PO PRN (11:41)
[2020-09-22] MEDS ORDERED: SODIUM CHLORIDE 0.9% 1000 ML 1,000 ML IV SCH (11:45)
--- NOTE | 2020-09-22 11:49 | Cardiac Catherization Report ---
CARDIAC CATHETERIZATION AND CORONARY ANGIOPLASTY REPORT The patient is a 50-year-old man who underwent coronary intervention in 01/2019, for an acute ST elevation myocardial infarction. He underwent deployment of a 3.0 mm drug-eluting stent to the proximal circumflex artery. Recently on followup, he underwent a thallium stress test that revealed a large, partially transient lateral wall defect in the territory of the circumflex, that suggested possible in-stent restenosis. He was recommended for cardiac catheterization. PROCEDURES: 1. Left heart catheterization. 2. Selective left and right coronary angiography. 3. Left ventricular angiography. 4. Coronary angioplasty and stenting of the proximal circumflex artery. 5. Sedation time start 10:31, end 11:08. DESCRIPTION OF PROCEDURE: The patient was prepped and draped in a sterile fashion after informed consent. The right radial cath site was prepped and draped after a negative Enrique's test. The right radial artery was entered using Seldinger technique followed by placement of a 6-Irish hydrophilic sheath. Routine radial cocktail was administered via the sheath. Selective left and right coronary angiography was performed using a #3.5 left Mary and #4 right Mary. The right Mary was used for left ventricular angiography. The angiograms were reviewed. CORONARY ANGIOGRAPHY: The left main coronary artery was free of significant disease. The left anterior descending artery contained mild luminal irregularities of its mid segment, otherwise free of significant disease. The circumflex artery was notable for a stent in its proximal to mid AV groove segment. There was severe in-stent restenosis with an up to 99% restenosis at the proximal border of the stented segment. The right coronary artery was dominant and contained mild luminal irregularities. No significant coronary lesions. The left ventricle appeared moderately dilated, with moderately severe diffuse hypokinesis, estimated ejection fraction 30%. CORONARY ANGIOPLASTY: After review of the angiograms, ad hoc coronary intervention to the proximal circumflex was recommended. We selected a #3.0 XB guiding catheter and advanced to the left coronary ostium. A 0.014 inch Safety Glass Installer 50 guidewire was successfully transitioned through the circumflex lesion. Following wire placement, balloon angioplasty was then performed to the lesion. Due to the severe stenosis, we initially used a 2.0 mm balloon catheter followed by a 3.5 mm balloon catheter for predilatation. Following successful predilatation, a 3.5 x 26 mm Resolute drug-eluting stent was then deployed across the lesional segment beginning from the ostium of the circumflex, across the restenotic lesion, and the previously deployed stent. The new stent was inflated to optimal pressures. Following stenting, there was an excellent angiographic result, 0 residual stenosis and CHELSI 3 flow maintained down the vessel. Procedure was well tolerated by the patient and there were no complications. CONCLUSION: 1. Coronary artery disease with severe in-stent restenosis of the proximal circumflex artery. 2. Otherwise, no significant lesions in the LAD or right coronary arteries. 3. Moderately severe dilated cardiomyopathy with ejection fraction 30%. 4. Successful angioplasty and stenting of the proximal circumflex artery with excellent angiographic result following deployment of a 3.5 x 26 mm Resolute drug-eluting stent. JOB# [id number] CHELY/ORDRIGUE
--- NOTE | 2020-09-22 11:53 | Event Note ---
Date: 09/22/20 The patient presented for outpatient cardiac catheterization, completed via the right radial approach. 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 Successful ad hoc angioplasty and stenting, using a 3.5 x 26 mm drug-eluting stent, excellent angiographic result, no complications. The patient is admitted for 23-hour observation post procedure, anticipate discharge in the morning.
[2020-09-22] MEDS: LISINOPRIL 10 MG TAB PO SCH (13:49)
[2020-09-22] MEDS: PANTOPRAZOLE 40 MG TAB PO SCH (13:49)
[2020-09-22] MEDS: METOPROLOL TARTRATE 25 MG TAB PO SCH ×2 (13:50→22:10)
[2020-09-22] MEDS: INSULIN REGULAR, HUMAN 100 UNIT/ML 3ML VIAL SUB-Q SCH (18:03)
[2020-09-22] MEDS ORDERED: NON-FORMULARY EACH (Gabapentin [Neurontin] 600 MG) PO SCH (22:00)
[2020-09-22] MEDS ORDERED: TICAGRELOR 90 MG TAB PO SCH (22:00)
[2020-09-22] MEDS: TICAGRELOR 90 MG TAB PO SCH (22:10)
[2020-09-22] MEDS: GABAPENTIN 300 MG CAP PO SCH (22:11)
[2020-09-23 05:22] LABS: Basophils % (Auto) 0.7 % (0.0-1.8); Eosinophils # (Auto) 0.1 K/mm3 (0.0-0.4); Eosinophils % (Auto) 1.3 % (0.0-4.3); Hematocrit 38.1 % (35.5-45.6); Hemoglobin 11.8 gm/dl (11.8-15.2); Lymphocytes # (Auto) 0.8 K/mm3 (1.2-5.4); Lymphocytes % (Auto) 13.9 % (13.4-35.0); Mean Corpuscular HGB Conc 31 % (32-34); Mean Corpuscular Volume 75 fl (84-94); Monocytes # (Auto) 0.7 K/mm3 (0.0-0.8); Platelet Count 190 K/mm3 (140-440); Red Blood Count 5.11 M/mm3 (3.65-5.03); Red Cell Distribution Width 14.7 % (13.2-15.2)
[2020-09-23 05:41] LABS: Creatine Kinase MB 2.3 ng/mL (0.0-4.0)
[2020-09-23 05:44] LABS: BUN/Creatinine Ratio 12; Blood Urea Nitrogen 12 mg/dL (9-20); Calcium 8.3 mg/dL (8.4-10.2); Hemolysis Index 1
[2020-09-23] MEDS: INSULIN REGULAR, HUMAN 100 UNIT/ML 3ML VIAL SUB-Q SCH (07:55)
[2020-09-23 08:35] VITALS: BP 135/84
--- NOTE | 2020-09-23 08:37 | XRay Report ---
CHEST 1 VIEW INDICATION: post pci. COMPARISON: 01/12/2019 FINDINGS: Support devices: None. Heart: Within normal limits. Lungs/Pleura: No acute air space or interstitial disease. Additional findings: None. IMPRESSION: No acute findings. Signer Name: New Serrano Jr, MD Signed: 09/23/2020 8:32 AM Workstation Name: [id number]
[2020-09-23] MEDS: LISINOPRIL 10 MG TAB PO SCH (09:29)
[2020-09-23] MEDS: METOPROLOL TARTRATE 25 MG TAB PO SCH (09:30)
[2020-09-23] MEDS: TICAGRELOR 90 MG TAB PO SCH (09:30)
[2020-09-23] MEDS: PANTOPRAZOLE 40 MG TAB PO SCH (09:30)
[2020-09-23] MEDS: GABAPENTIN 300 MG CAP PO SCH (09:45)
[2020-09-23] MEDS ORDERED: ASPIRIN EC 325 MG TAB PO SCH (10:00)
[2020-09-23] MEDS ORDERED: DAPAGLIFLOZIN (NF) PROPANEDIOL 5 MG TAB PO SCH (10:00)
[2020-09-23] MEDS ORDERED: NON-FORMULARY EACH (Sitagliptin Phosphate [Januvia] 100 MG) PO SCH (10:00)
[2020-09-23] MEDS ORDERED: LINAGLIPTIN 5 MG TAB PO SCH (10:00)
--- NOTE | 2020-09-23 10:43 | Short Stay Summary ---
Short Stay Documentation Date of service: 09/23/20 - History H&P: obtained from office - Allergies and Medications Current Medications: Allergies No Known Allergies Allergy (Verified 01/10/19 04:35) Home Medications Medication Instructions Recorded Confirmed Last Taken Type Aspirin [Aspirin BABY CHEW TAB] 81 mg PO QDAY #30 tab.chew 01/15/19 09/22/20 09/21/20 Rx AtorvaSTATin [Lipitor] 80 mg PO QHS #30 tablet 01/15/19 09/22/20 09/21/20 Rx Gabapentin [Neurontin] 600 mg PO BID #60 tablet 01/15/19 09/22/20 09/21/20 Rx ISOSORBIDE MONOnitrate [Imdur ER] 30 mg PO QDAY #30 tablet 01/15/19 09/22/20 09/21/20 Rx Metoprolol [Lopressor TAB] 25 mg PO BID #60 tablet 01/15/19 09/22/20 09/21/20 Rx Pantoprazole [Protonix TAB] 40 mg PO DAILY #30 tablet 01/15/19 09/22/20 09/21/20 Rx Ticagrelor [Brilinta] 90 mg PO BID #60 tablet 01/15/19 09/22/20 09/21/20 Rx Dapagliflozin Propanediol (Nf) 5 mg PO DAILY 09/22/20 09/22/20 09/21/20 History [Farxiga (Nf)] Sitagliptin Phosphate [Januvia] 100 mg PO DAILY 09/22/20 09/22/20 09/21/20 History lisinopriL [Zestril TAB] 10 mg PO QDAY 09/22/20 09/22/20 09/22/20 History Active Medications Acetaminophen (Tylenol) 650 mg PO Q4H PRN PRN Reason: Pain MILD(1-3)/Fever >100.5/CHRISTOPHER Hydrocodone Bitart/Acetaminophen ([place] 5/325) 1 each PO Q6H PRN PRN Reason: Pain, Moderate (4-6) Last Admin: 09/22/20 12:00 Dose: 1 each Documented by: Aspirin (Halfprin Ec) 81 mg PO QDAY [facility] Atorvastatin Calcium (Lipitor) 80 mg PO QHS [facility] Last Admin: 09/22/20 22:10 Dose: 80 mg Documented by: Gabapentin (Gabapentin) 600 mg PO BID [facility] Last Admin: 09/23/20 09:45 Dose: Not Given Documented by: Insulin Human Regular (Humulin R) 0 unit SUB-Q ACHS [facility]; Protocol Last Admin: 09/23/20 07:55 Dose: Not Given Documented by: Isosorbide Mononitrate (Imdur) 30 mg PO QDAY [facility] Last Admin: 09/23/20 09:30 Dose: 30 mg Documented by: Linagliptin (Tradjenta) 5 mg PO QDAY [facility] Last Admin: 09/23/20 09:44 Dose: 5 mg Documented by: Lisinopril (Zestril) 10 mg PO QDAY [facility] Last Admin: 09/23/20 09:29 Dose: 10 mg Documented by: Metoprolol Tartrate (Metoprolol) 25 mg PO BID [facility] Last Admin: 09/23/20 09:30 Dose: 25 mg Documented by: Ondansetron HCl (Zofran) 4 mg IV Q8H PRN PRN Reason: N/V unrelieved by Reglan Pantoprazole Sodium (Protonix) 40 mg PO DAILY [facility] Last Admin: 09/23/20 09:30 Dose: 40 mg Documented by: Ticagrelor (Brilinta) 90 mg PO BID [facility] Last Admin: 09/23/20 09:30 Dose: 90 mg Documented by: Tramadol HCl (Ultram) 50 mg PO Q4H PRN PRN Reason: Pain, Mild (1-3) Zolpidem Tartrate (Ambien) 5 mg PO QHS PRN PRN Reason: Sleep - Physical exam General appearance: no acute distress HEENT: PERRLA Lungs: Clear to auscultation Heart: Regular rate, Normal S1, Normal S2 - Brief post op/procedure progress note Procedure: The patient presented for outpatient cardiac catheterization, completed via the right radial approach. 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 Successful ad hoc angioplasty and stenting, using a 3.5 x 26 mm drug-eluting stent, excellent angiographic result, no complications. - Hospital course Hospital course: Stable overnight observation. - Disposition Condition at discharge: Good Disposition: DC-01 TO HOME OR SELFCARE Short Stay Discharge Plan Activity: advance as tolerated Weight Bearing Status: Partial Weight Bearing Diet: low fat, low cholesterol, low salt Follow up with: DIANA LO MD [Primary Care Provider] - 7 Days
[2020-09-24] MEDS ORDERED: ASPIRIN EC 81 MG TAB PO SCH (10:00)
== END 2020-09-23 13:27 | disposition home or self-care (01) ==
LOC: CATHLABREC 07:09 → 4A 11:41
PROVIDERS: ADMIT Internal Medicine Cardiovascular Disease; ATTEND Internal Medicine Cardiovascular Disease
DX: I10 Essential (primary) hypertension (principal); I25.2 Old myocardial infarction; I25.10 Atherosclerotic heart disease of native coronary artery without angina pectoris; Z98.61 Coronary angioplasty status; R94.31 Abnormal electrocardiogram [ECG] [EKG]; I21.3 ST elevation (STEMI) myocardial infarction of unspecified site; M13.872 Other specified arthritis, left ankle and foot; M13.871 Other specified arthritis, right ankle and foot; Z79.82 Long term (current) use of aspirin; Z79.84 Long term (current) use of oral hypoglycemic drugs
CPT/HCPCS: 36415; 71045; 80048; 82550; 82553; 82962; 84484; 85025; 85610; 85730; 93005; 93458; 94760; 96360; A9270; C1725; C1769; C1874; C1887; C1894; C9600; G0378; J1644; J2250; J3010; J7030; J7040; 92928; Q9967

== ENCOUNTER 2021-07-02 08:30 | Emergency (ER) | payer MEDICARE ==
[2021-07-02 08:37] VITALS: BP 103/59
[2021-07-02 09:48] LABS: Basophils % (Auto) 0.5 % (0.0-1.8); Hematocrit 42.9 % (35.5-45.6); Hemoglobin 13.4 gm/dl (11.8-15.2); Lymphocytes # (Auto) 0.4 K/mm3 (1.2-5.4); Lymphocytes % (Auto) 8.1 % (13.4-35.0); Mean Corpuscular HGB Conc 31 % (32-34); Mean Corpuscular Volume 72 fl (84-94); Monocytes # (Auto) 0.5 K/mm3 (0.0-0.8); Platelet Count 169 K/mm3 (140-440); Red Blood Count 5.94 M/mm3 (3.65-5.03); Red Cell Distribution Width 14.8 % (13.2-15.2)
--- NOTE | 2021-07-02 10:01 | XRay Report ---
CHEST 2 VIEWS 0932 INDICATION / CLINICAL INFORMATION: SOB COMPARISON: 09/23/2020 FINDINGS: SUPPORT DEVICES: None. HEART / MEDIASTINUM: No significant abnormality. LUNGS / PLEURA: Poor degree of inspiration is seen. Patchy bilateral increased interstitial markings are seen of concern for interstitial infiltrate. These are most prominent in the left base. No pneumo thorax. ADDITIONAL FINDINGS: No significant additional findings. Signer Name: Tommy Negro MD Signed: 07/02/2021 9:56 AM Workstation Name: [id number]
[2021-07-02 10:17] LABS: Albumin 3.4 g/dL (3.9-5); Calcium 8.5 mg/dL (8.4-10.2)
--- NOTE | 2021-07-02 15:08 | Event Note ---
ED Screening Note Date of service: 07/02/21 Time: 15:06 ED Screening Note: 50-year-old -Finnish male with a history of diabetes presents to the emergency room stating that he has been exposed to Covid. Patient complains of shortness of breath fatigue dry cough. Patient is unvaccinated. This initial assessment/diagnostic orders/clinical plan/treatment(s) is/are subject to change based on patients health status, clinical progression and re- assessment by fellow clinical providers in the ED. Further treatment and workup at subsequent clinical providers discretion. Patient/guardian urged not to elope from the ED as their condition may be serious if not clinically assessed and managed. Initial orders include: Initial orders were placed when patient came into triage. It was noted that patient had an elevated blood sugar 527, mildly elevated troponin of 0.021, potassium of 5.5 ion gap sodium of 125 corrected sodium of 132. Second troponin has been ordered by this provider and venous pH has been ordered. I have notified ER attending Dr. Allen in charge nurse at this moment we do not have any rooms available
--- NOTE | 2021-07-02 15:44 | Emergency Department Report ---
ED General Adult HPI - General Chief complaint: Weakness Stated complaint: FATGIUE/VOMITING/SOB/DRY COUGH Time Seen by Provider: 07/02/21 14:48 Source: patient Mode of arrival: Wheelchair Limitations: Physical Limitation - History of Present Illness Initial comments: 50-year-old -Algerian male with a history of diabetes presents to the emergency room stating that he has been exposed to Covid. Patient complains of shortness of breath fatigue dry cough. Patient is unvaccinated. Patient complains of fatigue shortness of breath dry cough and vomiting. - Related Data Home Medications Medication Instructions Recorded Confirmed Last Taken Dapagliflozin Propanediol (Nf) 5 mg PO DAILY 09/22/20 09/22/20 09/21/20 [Farxiga (Nf)] Sitagliptin Phosphate [Januvia] 100 mg PO DAILY 09/22/20 09/22/20 09/21/20 lisinopriL [Zestril TAB] 10 mg PO QDAY 09/22/20 09/22/20 09/22/20 Previous Rx's Medication Instructions Recorded Last Taken Type Aspirin [Aspirin BABY CHEW TAB] 81 mg PO QDAY #30 tab.chew 01/15/19 09/21/20 Rx AtorvaSTATin [Lipitor] 80 mg PO QHS #30 tablet 01/15/19 09/21/20 Rx Gabapentin [Neurontin] 600 mg PO BID #60 tablet 01/15/19 09/21/20 Rx ISOSORBIDE MONOnitrate [Imdur ER] 30 mg PO QDAY #30 tablet 01/15/19 09/21/20 Rx Metoprolol [Lopressor TAB] 25 mg PO BID #60 tablet 01/15/19 09/21/20 Rx Pantoprazole [Protonix TAB] 40 mg PO DAILY #30 tablet 01/15/19 09/21/20 Rx Ticagrelor [Brilinta] 90 mg PO BID #60 tablet 01/15/19 09/21/20 Rx Allergies Allergy/AdvReac Type Severity Reaction Status Date / Time No Known Allergies Allergy Verified 07/02/21 08:37 ED Review of Systems ROS: Stated complaint: FATGIUE/VOMITING/SOB/DRY COUGH Other details as noted in HPI Comment: All other systems reviewed and negative ED Past Medical Hx - Past Medical History Hx Hypertension: Yes Hx Diabetes: Yes - Social History Smoking Status: Never Smoker - Medications Home Medications: Home Medications Medication Instructions Recorded Confirmed Last Taken Type Aspirin [Aspirin BABY CHEW TAB] 81 mg PO QDAY #30 tab.chew 01/15/19 09/22/20 09/21/20 Rx AtorvaSTATin [Lipitor] 80 mg PO QHS #30 tablet 01/15/19 09/22/20 09/21/20 Rx Gabapentin [Neurontin] 600 mg PO BID #60 tablet 01/15/19 09/22/20 09/21/20 Rx ISOSORBIDE MONOnitrate [Imdur ER] 30 mg PO QDAY #30 tablet 01/15/19 09/22/20 09/21/20 Rx Metoprolol [Lopressor TAB] 25 mg PO BID #60 tablet 01/15/19 09/22/20 09/21/20 Rx Pantoprazole [Protonix TAB] 40 mg PO DAILY #30 tablet 01/15/19 09/22/20 09/21/20 Rx Ticagrelor [Brilinta] 90 mg PO BID #60 tablet 01/15/19 09/22/20 09/21/20 Rx Dapagliflozin Propanediol (Nf) 5 mg PO DAILY 09/22/20 09/22/20 09/21/20 History [Farxiga (Nf)] Sitagliptin Phosphate [Januvia] 100 mg PO DAILY 09/22/20 09/22/20 09/21/20 History lisinopriL [Zestril TAB] 10 mg PO QDAY 09/22/20 09/22/20 09/22/20 History ED Physical Exam - General Limitations: Physical Limitation General appearance: alert, obese - Head Head exam: Present: atraumatic, normocephalic - Eye Eye exam: Present: normal appearance - ENT ENT exam: Present: normal external ear exam - Neck Neck exam: Present: normal inspection, full ROM - Cardiovascular Cardiovascular Exam: Present: tachycardia - GI/Abdominal GI/Abdominal exam: Present: soft. Absent: distended - Rectal Rectal exam: Present: deferred - Back Exam Back exam: Present: normal inspection, full ROM - Neurological Exam Neurological exam: Present: alert, oriented X3 - Psychiatric Psychiatric exam: Present: normal affect, normal mood - Skin Skin exam: Present: warm, dry, intact, normal color. Absent: rash ED Course Vital Signs 07/02/21 08:34 Temperature 99.5 F Pulse Rate 95 H Respiratory 20 Rate Blood Pressure 103/59 [Left] O2 Sat by Pulse 95 Oximetry ED Medical Decision Making - Lab Data Result diagrams: 07/02/21 08:47 07/02/21 08:47 Laboratory Tests 07/02/21 07/02/21 07/02/21 08:47 08:47 14:27 WBC 4.7 RBC 5.94 H Hgb 13.4 Hct 42.9 MCV 72 L MCH 23 L MCHC 31 L RDW 14.8 Plt Count 169 Lymph % (Auto) 8.1 L Jones % (Auto) 11.0 H Eos % (Auto) 0.0 Baso % (Auto) 0.5 Lymph # (Auto) 0.4 L Jones # (Auto) 0.5 Eos # (Auto) 0.0 Baso # (Auto) 0.0 Seg Neutrophils % 80.4 H Seg Neutrophils # 3.8 VBG pH Sodium 125 L Potassium 5.5 H Chloride 88.3 L Carbon Dioxide 16 L Anion Gap 26 BUN 47 H Creatinine 2.0 H Estimated GFR 43 BUN/Creatinine Ratio 24 Glucose 527 H* Calcium 8.5 Total Bilirubin 0.50 AST 26 ALT 15 Alkaline Phosphatase 59 Troponin T 0.021 0.014 Total Protein 7.4 Albumin 3.4 L Albumin/Globulin Ratio 0.9 07/02/21 14:34 WBC RBC Hgb Hct MCV MCH MCHC RDW Plt Count Lymph % (Auto) Jones % (Auto) Eos % (Auto) Baso % (Auto) Lymph # (Auto) Jones # (Auto) Eos # (Auto) Baso # (Auto) Seg Neutrophils % Seg Neutrophils # VBG pH 7.344 Sodium Potassium Chloride Carbon Dioxide Anion Gap BUN Creatinine Estimated GFR BUN/Creatinine Ratio Glucose Calcium Total Bilirubin AST ALT Alkaline Phosphatase Troponin T Total Protein Albumin Albumin/Globulin Ratio - EKG Data Interpretation: nonspecific ST-T wave chay, other (rvh) - Radiology Data Radiology results: report reviewed [facility] [address] [place] [address] XRay Report Signed Patient: MORRIS BATES MR#: [id number] : 1970 Acct:[id number] Age/Sex: 50 / M ADM Date: 07/02/21 Loc: ED Attending Dr: Ordering Physician: ED DOC, Date of Service: 07/02/21 Procedure(s): XR chest routine 2V Accession Number(s): [id number] cc: ED DOC, Fluoro Time In Minutes: CHEST 2 VIEWS 0932 INDICATION / CLINICAL INFORMATION: SOB COMPARISON: 09/23/2020 FINDINGS: SUPPORT DEVICES: None. HEART / MEDIASTINUM: No significant abnormality. LUNGS / PLEURA: Poor degree of inspiration is seen. Patchy bilateral increased interstitial markings are seen of concern for interstitial infiltrate. These are most prominent in the left base. No pneumothorax. ADDITIONAL FINDINGS: No significant additional findings. Signer Name: Tommy Negro MD Signed: 07/02/2021 9:56 AM Workstation Name: [id number] Transcribed By: GJ Dictated By: Tommy Negro MD Electronically Authenticated By: Tommy Negro MD Signed Date/Time: 07/02/21955 DD/ 4 TD/TT: Print Cancel - Medical Decision Making 50-year-old -Algerian male with a history of diabetes presents to the emergency room stating that he has been exposed to Covid. Patient complains of shortness of breath fatigue dry cough. Patient is unvaccinated. Initial orders were placed when patient came into triage. It was noted that patient had an elevated blood sugar 527, mildly elevated troponin of 0.021, potassium of 5.5 ion gap sodium of 125 corrected sodium of 132. Second troponin has been ordered by this provider and venous pH has been ordered. I have notified ER attending Dr. Allen in charge nurse at this moment we do not have any rooms available Critical care attestation.: If time is entered above; I have spent that time in minutes in the direct care of this critically ill patient, excluding procedure time. ED Disposition Clinical Impression: Acute hyperkalemia, Acute renal failure, Exposure to COVID-19 virus, Hyperglycemia due to type 2 diabetes mellitus Disposition: 07 LEFT AWOL/ELOPED Is pt being admited?: No Does the pt Need Aspirin: No Condition: Stable Instructions: Diabetes Mellitus Type 2 in Adults (ED) Referrals: PRIMARY CARE, [Primary Care Provider] - 3-5 Days
--- NOTE | 2021-07-02 17:26 | Electrocardiograph Report ---
[facility] Test Date: 2021-07-02 Test Time: 09:11:42 Pat Name: MORRIS BATES Department: Room: Gender: M Display Department Manager: TV : 1970 Requested By: ED DOC Order Number: [id number] Reading MD: Naseem Mckeon Measurements Intervals [place] Rate: 92 P: 16 AL: 142 QRS: 244 QRSD: 96 T: 66 QT: 359 QTc: 446 Interpretive Statements Sinus rhythm Left axis deviation Low voltage QRS Right ventricular hypertrophy No previous ECG available for comparison Electronically Signed On 07-02-2021 17:26:00 EDT by Naseem Mckeon
== END 2021-07-03 09:04 | disposition left against medical advice (07) ==
LOC: ED 08:30
DX: N17.9 Acute kidney failure, unspecified (principal); E11.65 Type 2 diabetes mellitus with hyperglycemia; E87.5 Hyperkalemia; I10 Essential (primary) hypertension; Z79.82 Long term (current) use of aspirin; Z79.899 Other long term (current) drug therapy
CPT/HCPCS: 36415; 71046; 80053; 82805; 84484; 85025; 93005; 99283